=== PATIENT | male | born 1965 | race Caucasian/White ===

== ENCOUNTER → 2020-02-27 | Outpatient (CLI) | payer OTHER, SELFPAY ==
--- NOTE | 2020-02-26 | IMM_PTH ---
PATIENT: TRI MARTINEZ LOC: [facility] U#:[id number] AGE/SX: 54/M ROOM: RE02/27/[address]: Dr. Quinn Du DO : 1965 BED: DIS: 02/27/2020 SPEC #: [id number] RECD: 02/28/20 10:23 STATUS: ANDREY RETee #: [id number] ISIDORO: 02/26/20 00:[address]: Quinn Du DEPT: IMMUNOHISTOCHEMISTRY RECD BY: Shirley Peterson Tissues: Skin of forearm, NOS Procedures: [place]-1 (initial) S-100 (add) PHYSICIAN & INSTITUTION [place] [id number] SPECIMEN INFORMATION: Tissue Source: Left forearm Clinical Info: Left forearm mole Specimen Number: [id number] CPT code: 20726, 43800 METHODOLOGY: Deparaffinized sections of prefer/formalin-fixed tissue or PAP/DQ stained slides are incubated with monoclonal/polyclonal antibodies/oligonucleotide probes. Localization is made via biotin free immunoperoxidase method. Appropriate controls are performed and reacted as expected. Results on target cell population are indicated in the following table: RESULTS: ANTIBODY / CLONE RESULT S-100 (4C4.9) positive MART-1 (A-103) positive These tests were developed and their performance characteristics determined by [facility]. They may not have been cleared or approved by the U.S. Food and Drug Administration. The FDA has determined that such clearance or approval is not necessary. The above immunohistochemical/dualISH markers are ordered and reviewed by the Pathologist. INTERPRETATION: Left forearm, shave biopsy: Mild melanocytic hyperplasia, favor reactive. Chronic inflammation. This case has been reviewed in consultation with Dr. Boyd who concurs with the above diagnosis. SJ:linda 03/02/20
[2020-02-26 16:03] VITALS: BMI 32.3
--- NOTE | 2020-02-26 16:45 | LES_PTH ---
PATIENT: TRI MARTINEZ LOC: [facility] U#:[id number] AGE/SX: 54/M ROOM: RE02/27/[address]: Dr. Quinn Du DO : 1965 BED: DIS: 02/27/2020 SPEC #: [id number] RECD: 02/27/20 09:05 STATUS: ANDREY MARVIN #: [id number] ISIDORO: 02/26/20 16:[address]: Quinn Du DEPT: SURGICAL PATHOLOGY RECD BY: Ward Ortiz Tissues: Skin of forearm, NOS Procedures: Surgery Specimen Level IV HEADER OPERATION: Shave biopsy PRE-OP DIAGNOSIS: Left forearm mole TISSUE SUBMITTED: Left forearm MICROSCOPIC DIAGNOSIS Left forearm mole, shave biopsy: Junctional and moderate to marked dermal lichenoid chronic inflammation. Acanthosis, hyperkeratosis and mild melanocytic hyperplasia, favor reactive. Solar elastosis. Dermal melanophages. Special stain for fungi is negative for organisms; matched control is appropriate. Negative for malignancy. See comment. ABBY:linda 02/28/20 COMMENT Immunohistochemistry ([id number]) supports the above diagnosis. Clinical correlation and appropriate follow up are necessary. Case has been reviewed in consultation with Dr. Boyd who concurs with the above diagnosis. IDC:AM MICROSCOPIC DESCRIPTION Slides are reviewed. GROSS DESCRIPTION Received in fixative is one container labeled with the patient's name and designated left forearm. The specimen consists of a shave biopsy of carrington-light brown skin measuring 1 x 0.6 x 0.1 cm. The specimen is inked and submitted entirely in one cassette. It will be sectioned at the time of embedding. / ABBY:linda 02/27/20 TC:3 CPT: 62219, 59087
== END | disposition home or self-care (01) ==
LOC: LABSPEC 08:53
PROVIDERS: PCP Family Medicine; Referring Provider Family Medicine; Visit Provider Family Medicine
DX: C44.619 Basal cell carcinoma of skin of left upper limb, including shoulder (principal)
CPT/HCPCS: 88305; 88341; 88342

== ENCOUNTER → 2021-05-11 | Outpatient (CLI) | payer OTHER, SELFPAY ==
[2021-05-11 09:33] VITALS: BMI 32.3
== END | disposition home or self-care (01) ==
LOC: LABSPEC 16:18
PROVIDERS: PCP Family Medicine; Referring Provider Family Medicine; Visit Provider Family Medicine
DX: Z20.822 Contact with and (suspected) exposure to COVID-19 (principal)
CPT/HCPCS: 87635; U0005; U0003

== ENCOUNTER 2022-01-07 09:29 | Outpatient (CLI) | payer OTHER, SELFPAY ==
--- NOTE | 2022-01-07 09:30 | RAD_ITS ---
STUDY: X-RAY CHEST REASON FOR EXAM: Male, 56 years old. Cough TECHNIQUE: PA and lateral views of the chest. COMPARISON: None. FINDINGS: Patchy infiltrate in the right lower lobe preferentially in the peripheral distribution. This may represent pneumonitis associated with Covid. Mild increased markings at the left lung base. There is no demonstrated pleural abnormality. Normal size heart. Normal mediastinum and malcolm. Normal visualized pulmonary arteries. There is atherosclerotic tortuosity of the aortic arch and descending thoracic aorta. There are diffuse degenerative changes of the visualized thoracic spine. Normal visualized ribs, clavicles, and shoulders. There is no demonstrated abnormality of the visualized soft tissue structures of the upper abdomen. RAD/Chest PA and Lateral IMPRESSION: Patchy infiltrates in the peripheral aspect of the right lower lobe. Pneumonitis associated with Covid should be ruled out. Electronically Signed: Lance Vinson MD at 9:51 EST ,
== END 2022-01-07 23:59 | disposition home or self-care (01) ==
LOC: MTRAD 09:30
PROVIDERS: PCP Family Medicine; Visit Provider Physician Assistant
DX: R05.9 Cough, unspecified (principal)
CPT/HCPCS: 71046

== ENCOUNTER 2023-02-03 20:33 | Emergency (ER) | payer OTHER, SELFPAY ==
[2023-02-03 20:34] VITALS: BP 201/102; PULSE 84; RESP 18; TEMP 35.7; O2SAT 97
[2023-02-03] MEDS: HYDROmorphone 1 MG/ML Syringe 2 MG IM (21:08)
[2023-02-03 21:12] VITALS: BMI 48.4
--- NOTE | 2023-02-03 21:26 | RAD_ITS ---
EXAM: XR LEFT KNEE COMPLETE, 4 OR MORE VIEWS CLINICAL INDICATION: injury TECHNIQUE: Four or more views of the left knee. This report was created using [employer] report generation technology. COMPARISON: None. FINDINGS: BONES/JOINTS: Unremarkable. No acute fracture. No subluxation. Normal alignment. Preservation of the joint space. No sclerotic or destructive changes observed. SOFT TISSUES: Unremarkable. No soft tissue swelling or gas. No radiopaque foreign body. RAD/Knee 4 or More Views IMPRESSION: Negative left knee x-rays. Electronically Signed: Gonzalo Combs MD at 21:47 EDT ,
[2023-02-03] MEDS: Ondansetron ODT 4 MG Tablet PO (22:28)
--- NOTE | 2023-02-03 22:31 | US_ITS ---
EXAM: US DUPLEX LEFT LOWER EXTREMITY VEINS CLINICAL INDICATION: PT WAS WALKING AND LT KNEE GAVE OUT- CAN''T BEAR WEIGHT ON IT. IN SEVERE PAIN- HAPPENED JUST TONIGHT TECHNIQUE: Real-time duplex ultrasound scan of the left lower extremity veins integrating B-mode two-dimensional vascular structure, Doppler spectral analysis, color flow Doppler imaging and compression. This report was created using [employer] report generation technology. COMPARISON: None. FINDINGS: DEEP VEINS: Unremarkable. No DVT in the visualized common femoral, femoral, proximal deep femoral or popliteal veins. The veins demonstrate normal color flow, are normally compressible, with normal phasic flow and/or augmentation response. SUPERFICIAL VEINS: Unremarkable. No thrombus in the visualized great saphenous vein. SOFT TISSUES: No acute findings. No popliteal cyst. US/Venous Duplex Imag/Limited/Uni IMPRESSION: Normal left lower extremity duplex venous ultrasound. Electronically Signed: Gonzalo Combs MD at 23:18 EDT ,
--- NOTE | 2023-02-03 22:40 | ED.VIS.LOWEX ---
HPI History of Present Illness Chief Complaint: Lower Extremity Injury Informant: patient Onset/Context/Timing Onset: Today Current Severity: Severe Maximum Severity: Severe Narrative Narrative: Patient presents secondary to left knee pain. 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 He was in and out of his truck multiple times today. This evening he stepped out of his truck and had some slight knee pain with his first step. With the second step he feels like his knee gave out on him. He now has severe pain to the left knee and feels like it is going to give out. He was going to wait to go to urgent care tomorrow but due to severity of pain presents to the ER tonight. [facility] Medical History Anxiety COVID-19 Hypertension Numerous moles Home Medications hydrocodone-acetaminophen 5-325mg 5mg-325mg 1 tab PO Q6H PRN PRN Pain 3 days #10 TABLETS 02/03/23 [Rx Last Taken Unknown] ondansetron 4 mg disintegrating tablet 4 mg PO Q8H PRN PRN Nausea #10 tabs 02/03/23 [Rx Last Taken Unknown] Allergy/AdvReac Type Severity Reaction Status Date / Time No Known Allergies Allergy Verified 02/03/23 20:35 Family History Mother Anxiety Grandfather Cancer Surgical History History of vasectomy Social History Smoking Status: Never smoker alcohol intake: never substance use type: does not use what type of physical activity do you participate in: walking frequency: 1-2 times per week ROS ROS ED Constitutional Constitutional ED: Denies chills or fever(s) Eyes Eyes: Denies change in vision ENT ENT ED: Denies rhinorrhea or sore throat Cardiovascular Cardiovascular: Denies chest pain Respiratory/Chest Respiratory/Chest: Denies cough or dyspnea Gastrointestinal Gastrointestinal: Denies abdominal pain, nausea or vomiting Musculoskeletal Musculoskeletal: Reports arthralgias Neurologic Neurologic: Denies headache(s) Psychiatric Psychiatric: Denies anxiety or depression Allergic/Immunologic Allergic/Immunologic ED: Denies mouth swelling or tongue swelling EXAM Physical Exam Const Vital Signs: 02/03/23 20:34 Temperature 96.3 F L Temperature Source Temporal Pulse Rate 84 Respiratory Rate 18 Blood Pressure 201/102 H Blood Pressure Mean 135 Pulse Ox 97 Oxygen Delivery Method Room Air Positive well nourished and well developed General Appearance ED: well developed HEENT Reports normocephalic and head/scalp atraumatic Eyes PERRL and EOMs intact bilaterally Neck supple Chest Wall inspection of chest normal and palpation of chest normal Resp normal respiratory effort and clear to auscultation bilaterally Cardio regular rate and regular rhythm GI normal to inspection, nondistended, normoactive bowel sounds Palpation: soft Extremity Extremity Narrative: 3+ bilateral lower extremity edema. Tenderness to the left knee, mild to the anterior surface and moderate to the posterior surface. Mild medial and lateral knee pain with testing of the medial and lateral ligaments. No tenderness over the patella or patellar tendon. No erythema or sign of infection. Decreased range of motion secondary to pain. Neuro oriented x3 and no sensory deficits noted Sensorium / Orientation: alert Psych mental status grossly normal Skin no rashes or lesions noted MDM MDM MDM Narrative Medical decision making narrative: Patient was given IM Dilaudid for pain control. Left knee x-rays obtained. Radiography Diagnostic Testing: Clinical Impression(s) from Imaging Studies Knee X-Ray 02/03/23 21:26 IMPRESSION: Negative left knee x-rays. Electronically Signed: Gonzalo Combs MD at 21:47 EDT , Venous Duplex 02/03/23 22:31 IMPRESSION: Normal left lower extremity duplex venous ultrasound. Electronically Signed: Gonzalo Combs MD at 23:18 EDT , Treatment and Re-Evaluation Narrative: Left knee x-ray per my interpretation reveals no acute bony findings. Radiology interpretation is reviewed and agrees. On repeat evaluation patient had developed some nausea from the analgesics. He is given Zofran ODT. He is complaining of pain shooting up into the posterior thigh. 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 Venous ultrasound reveals no evidence of DVT. Patient be given crutches and knee immobilizer. He may weight-bear as tolerated. He will be referred to orthopedics for follow-up. Patient was noted be significantly hypertensive on arrival. He has a history of hypertension but is not currently on any medication. When further questioned about this he states he has waxing and waning hypertension, usually brought on by when he is stressed. I advised him that I believe his blood pressure tonight is secondary to his current pain. He will follow-up with his primary care physician for repeat blood pressure checks to ensure it is improving. Discharge Plan Triage Chief Complaint: Lower Extremity Injury ED Provider: Meena Krishnamurthy Dx/Rx/DC Orders Clinical Impression: Left knee sprain, Hypertension Instructions: ED Meniscal Injury Knee Poss, ED Hypertension, To Be Confirmed, ED Knee Sprain Prescriptions: New hydrocodone-acetaminophen 5-325 mg tablet 1 tab PO Q6H PRN PRN (Reason: Pain) 3 Days Qty: 10 0RF ondansetron 4 mg tablet,disintegrating 4 mg PO Q8H PRN PRN (Reason: Nausea) Qty: 10 0RF Primary Care Provider: Quinn Du Referrals: Quinn Du, [Primary Care Provider] - 5-7 Days Chad Jones MD [Med Staff - Active Staff] - 3-5 Days if not improving Disposition Disposition: Home, Self Care
== END 2023-02-04 00:05 | disposition home or self-care (01) ==
PROVIDERS: Emergency Provider Emergency Medicine; PCP Family Medicine; Visit Provider Emergency Medicine
DX: S83.92XA Sprain of unspecified site of left knee, initial encounter (principal); I10 Essential (primary) hypertension; X58.XXXA Exposure to other specified factors, initial encounter
CPT/HCPCS: 73564; 93971; 96372; 99284

== ENCOUNTER → 2024-01-26 | Outpatient (CLI) | payer OTHER, SELFPAY ==
[2024-01-26 10:49] LABS: ALB/GLOB Ratio 0.9 RATIO (0.9-2.4); AST(SGOT) 41 U/L (15-37); Alanine Aminotransfer ALT/SGPT 56 U/L (16-61); Albumin, Serum 3.6 g/dL (3.2-5.0); Alkaline Phosphatase 85 U/L (45-117); Anion Gap 4 (5-15); BUN 16 mg/dL (7-18); BUN/Creat Ratio 17.7 RATIO (10-20); Calcium,Total 9.3 mg/dL (8.5-10.1); Chloride 104 mmol/L (98-107); Cholesterol 156 mg/dL (200); Creatinine, Serum 0.91 mg/dL (0.70-1.30); EST Glomerular Filtration Rate 91 mL/min (>60); Est Glom Filt Rate - Afr Amer 110 mL/min (>60); Glucose 107 mg/dL (74-106); High Density Lipoprotein 40 mg/dL; Potassium 4.9 mmol/L (3.5-5.1); Protein, Total 7.6 g/dL (6.4-8.2); Sodium Level 137 mmol/L (136-145); Triglycerides 112 mg/dL; Very Low Density Lipoprotein 22 mg/dL (5-40)
== END | disposition home or self-care (01) ==
LOC: MTLAB 07:54
PROVIDERS: PCP Family Medicine; Referring Provider Family Medicine; Visit Provider Family Medicine
DX: I10 Essential (primary) hypertension (principal)
CPT/HCPCS: 36415; 80053; 80061

== ENCOUNTER 2024-06-02 17:25 | Inpatient (IN) | payer OTHER, SELFPAY ==
[2024-06-02] VITALS (7 sets, daily range): BP systolic 106–148; BP diastolic 69–87; PULSE 93–106; RESP 15–22; TEMP 36.7–39.6; O2SAT 95–97; BMI 46.3; BMI 46.4
--- NOTE | 2024-06-02 17:52 | EKG12_ITS ---
Test Reason : SOB Blood Pressure : / mmHG Vent. Rate : 108 BPM Atrial Rate : 108 BPM P-R Int : 198 ms QRS Dur : 138 ms QT Int : 362 ms P-R-T Axes : 066 -22 106 degrees QTc Int : 485 ms Sinus tachycardia Left bundle branch block Abnormal ECG Confirmed by MITCH KULKARNI, ZACHARY ([id number]), videotape editor LAWRENCE CHAN ([id number]) on 06/05/2024 9:48:45 AM Referred By: Confirmed By:GAYATHRI MEYER MD
--- NOTE | 2024-06-02 17:57 | EDS_ITS ---
<Statement entered by Meena Krishnamurthy MD - 06/02/24 23:58> I have personally performed a face to face assessment of the patient and have reviewed the GABBIE Note. Patient presents secondary to body aches, fever, weakness, nausea. Patient states he did not feel well last evening but did get up this morning and go to [employer]. After returning home he felt feverish with chills, nausea, and vomiting. He does report a recent injury to his left lower leg with a skin tear. He has noted watery drainage from the area. He has also had a cough. Patient sitting upright in bed no acute distress. Head and neck examination unremarkable. Heart is slightly tachycardic at the time of my exam. Lung sounds are diminished at the bilateral bases. Abdomen soft, obese, nontender. Lower extremity examination reveals chronic lymphedema. There is a superficial skin tear/blister that has opened to the left lower leg. There is serosanguineous drainage. There is minimal surrounding erythema. Patient is given Tylenol for fever. IV fluids were initiated. Blood cultures obtained. CBC was a white count of 14.9 with 90% neutrophils. Hemoglobin is normal at 14.0. Chemistry studies and LFTs are largely unremarkable. Lactic acid is elevated at 2.4. Swab for COVID, influenza, and RSV is negative. Portable chest x-ray per my interpretation feels no obvious infiltrate. Radiology interpretation reviewed and agrees. Patient has received IV fluids for his elevated lactic acid level. Patient given Zosyn and vancomycin. I suspect patient may have mild left lower extremity cellulitis, but I do feel the majority of his fever and symptoms are coming from a viral syndrome. Given his constellation of symptoms we will discuss with hospitalist regarding admission. HPI History of Present Illness Chief Complaint: Nausea/Vomiting Narrative Narrative: Patient is a 58-year-old male with history of obesity, lymphedema, anxiety who presents to the emergency department for feeling unwell with fever, weakness, nausea and vomiting. Patient states he did not feel 100% last evening however he woke up today, he went to [employer]. After [employer], he developed a what he believes to be a fever because he was shaking, felt increasingly weak, had a couple episodes of nausea and vomiting. Patient has been draining from his left leg secondary to a scrape a couple days ago. His noticed that he was more weak, dizzy and is here for evaluation. Denies any chest pain, patient does have a cough does not feel short of breath. [facility] Medical History (Updated 06/02/24 @ 19:36 by MOISES Nguyen) Internal derangement of right knee COVID-19 Basal cell carcinoma Erectile dysfunction Actinic keratosis Numerous moles Anxiety Hypertension Home Medications ?Medication ?Instructions ?Recorded ?Last Taken ?Type tadalafil 20 mg tablet (Cialis) 20 mg PO QDAY PRN sexual activity 01/24/24 Unknown Rx #10 tabs cyclobenzaprine 10 mg tablet 10 mg PO TID PRN muscle spasm #14 01/29/24 Unknown Rx tabs Allergy/AdvReac Type Severity Reaction Status Date / Time No Known Allergies Allergy Verified 06/02/24 17:27 Family History Mother Anxiety Grandfather Cancer Surgical History History of vasectomy Social History (Updated 06/02/24 @ 19:[address] Claudia Hunter MD) household members: spouse Smoking Status: Never smoker alcohol intake: never substance use type: does not use what type of physical activity do you participate in: walking frequency: 1-2 times per week ROS ROS ED ROS Narrative Constitutional: Negative for weight loss. Positive for fever, chills, weakness Eyes: Negative for vision loss, vision change, double vision ENT: Negative for any sore throat, ear pain, congestion Cardiovascular: Negative for any chest pain, tightness, palpitations Respiratory: Negative for any sputum production, hemoptysis, dyspnea, dyspnea on exertion, orthopnea. Positive for cough Gastrointestinal: Negative for any abdominal pain, diarrhea, constipation, blood in stool, blood in vomit. Positive for nausea and vomiting : Negative for any urinary frequency, dysuria, retention, blood in urine Muscle skeletal: Negative for any neck pain, back pain. Positive generalized myalgias Neurological: Negative for any headache, syncope. Positive for myalgias Skin: Negative for any rashes, itching, abrasions, lacerations Psychiatric: Negative for any depression, anxiety, stress, suicidal ideation, homicidal ideation Hematologic: Negative for any excessive bruising, easy bleeding EXAM Physical Exam Narrative Exam Narrative: Vital signs reviewed. Patient is alert and orient x 4, patient is flushed, oral temperature that I took was 103.2. HEET: Head normocephalic atraumatic, TMs clear bilaterally. Posterior pharynx is clear, dry mucous membranes. Nares clear bilaterally. Neck: Supple with no lymphadenopathy or tenderness. No signs of meningismus. Cardiac: Regular rate and rhythm no murmurs gallops or rubs, equal peripheral pulses bilaterally. Respiratory: Lungs clear to auscultation bilaterally. No chest tenderness. Patient did exhibit a dry cough during my examination Abdomen: Soft, nontender, nondistended. No abdominal bruit or pulsatile masses. No hepatosplenomegaly Extremities: Patient has significant lymphedema to bilateral lower extremities. Patient's right leg is edematous, left leg is similar however much more red in color, more erythema, more warmth. Patient also has some clear fluid coming from a scrape to the outer leg. I am concerned for some cellulitis.. Active full range of motion of all extremities. Neuro: Cranial nerves II through XII intact, no focal neurological deficits. Skin: Clean dry and intact with no rash, purpura, petechiae, vesicles or pustules. Skin is warm to the touch. Backs/flank: No CVA tenderness, no midline spinal tenderness, no deformity. Psych: Normal mood and affect. No SI, HI or acute psychosis. Const Vital Signs: 06/02/24 17:27 06/02/24 17:47 06/02/24 18:08 Temperature 100.5 F H 103.2 F H Temperature Source Temporal Oral Pulse Rate 104 H Respiratory Rate 22 H Blood Pressure 106/87 H Blood Pressure Mean 93 Pulse Ox 95 Oxygen Delivery Method Room Air Room Air 06/02/24 18:50 Temperature 100.7 F H Temperature Source Oral Pulse Rate 106 H Respiratory Rate 17 Blood Pressure 148/74 H Blood Pressure Mean 98 Pulse Ox 95 Oxygen Delivery Method Room Air MDM MDM Lab Data Labs: Laboratory Results - last 24 hr 06/02/24 18:03 WBC 14.9 H RBC 5.20 Hgb 14.7 Hct 43.9 MCV 84.4 MCH 28.3 MCHC 33.5 RDW Std Deviation 38.3 RDW Coeff of Rebecca 12.6 Plt Count 234 MPV 9.5 Immature Gran % (Auto) 0.500 Neut % (Auto) 90.4 H Lymph % (Auto) 4.1 L [place] % (Auto) 4.5 Eos % (Auto) 0.2 Baso % (Auto) 0.3 Absolute Neuts (auto) 13.4 H Absolute Lymphs (auto) 0.61 L Nucleated RBC % 0 PT 14.9 INR 1.2 APTT 30.9 Sodium 133 L Potassium 3.5 Chloride 103 Carbon Dioxide 23.0 Anion Gap 7 BUN 21 H Creatinine 1.11 Estim Creat Clear Calc 103.86 Est GFR (MDRD) Af Amer 87 Est GFR (MDRD) Non-Af 72 BUN/Creatinine Ratio 18.9 Glucose 108 H Lactic Acid 2.4 H* Calcium 9.2 Total Bilirubin 0.90 AST 33 ALT 51 Alkaline Phosphatase 86 Total Protein 7.3 Albumin 3.8 Globulin 3.5 Albumin/Globulin Ratio 1.1 Radiography Diagnostic Testing: Clinical Impression(s) from Imaging Studies Chest X-Ray 06/02/24 18:25 IMPRESSION: 1. Minimal RIGHT basilar atelectasis. 2. No evidence of congestive failure, airspace consolidation or effusion. Electronically Signed: aDle García MD at 19:07 EDT , EKG Sinus tachycardia: Attestation: I personally reviewed and interpreted this EKG as follows: Interpretation: Sinus Rhythm Comments: Sinus tachycardia, left bundle branch block, rate 108 bpm, NM 198 ms, QRS duration 130 ms, no acute ST elevation, no acute infarct noted.=-0 Treatment and Re-Evaluation :: Differential diagnosis includes however is not limited to: Sepsis, cellulitis, viral illness, COVID-19/influenza/RSV, community-acquired pneumonia, UTI Patient does appear to not feel well, patient's tachycardia, fever 103.2 on my examination, 106/87 blood pressure. Patient will receive a full septic workup including 2 sets of blood cultures patient received 2 L of normal saline. Oral Tylenol will be given, once patient's blood work is back and will be able to give Toradol. Chest x-ray will be obtained as well as urinalysis. COVID- 19/influenza/RSV swab will be given. All radiologic examinations were read, reviewed by the emergency department attending. From these reads, a plan of care will be put in place. Patient CBC shows a leukocytosis with a white blood count of 14.9, patient's PT/INR within normal limits, patient's chemistries show sodium of 133, glucose 108, lactic acid was elevated 2. 4. Remainder the blood work was unremarkable. Chest x-ray was unremarkable. Patient's COVID-19/influenza/RSV was negative. On reevaluation, the patient was feeling better, he states that his body aches have decreased however he still having some back pain and right hand pain which is chronic. Patient does meet some sepsis criteria, patient received 2 L of normal saline for ideal body weight. IV Zosyn, vancomycin will be ordered. This is after 2 sets of blood cultures. Patient will need to be admitted to the hospital. I will speak to the hospitalist. I do believe that the patient's main source of infection is the left lower extremity, it is more red, swollen. Low suspicion for any DVT. There is some drainage from the lateral aspect. Spoke with hospitalist, patient be admitted full for MedSurg. Discharge Plan Triage Chief Complaint: Nausea/Vomiting ED Midlevel Provider: Dale Branch ED Provider: Meena Krishnamurthy Dx/Rx/DC Orders Clinical Impression: Fever, Cellulitis of left leg, Lactic acidosis, Cough Prescriptions: No Action tadalafil [Cialis] 20 mg tablet 20 mg PO QDAY PRN (Reason: sexual activity) Qty: 10 3RF Rx Instructions: administer approximately 30min before sexual activity; do not use more than 1 dose per 24hrs cyclobenzaprine 10 mg tablet 10 mg PO TID PRN (Reason: muscle spasm) Qty: 14 0RF Primary Care Provider: Quinn Du Referrals: Quinn Du DO [Primary Care Provider] - Print Language: Nauruan Disposition Disposition: Acute Care Hospital [facility]
[2024-06-02] MEDS: Acetaminophen 500 MG Tablet 1000 MG PO (18:06)
[2024-06-02] MEDS: 0.9% Normal Saline (1000mL) 1,000 ML 999 ML IV ×2 (18:06→19:42)
[2024-06-02 18:20] LABS: Absolute Lymphocyte Count 0.61 X10^3/uL (0.83-4.51); Absolute Neutrophil Count 13.4 X10^3/uL (2.0-7.7); Basophil# 0.05 X10^3/uL; Basophil% 0.3 % (0-1); Eosinophil# 0.03 X10^3/uL; Eosinophils% 0.2 % (0-5); Hematocrit 43.9 % (40-54); Hemoglobin 14.7 g/dL (13.0-16.5); Lymphocyte # 0.61 X10^3/ul (0.83-4.51); Lymphocyte % 4.1 % (19-41); Mean Corp Hgb Conc 33.5 g/dL (32-36); Mean Corpuscular Hgb 28.3 pg (27.0-32.0); Mean Corpuscular Volume 84.4 fL (80-94); Mean Platelet Vol. 9.5 fl (6.2-12.0); Monocyte# 0.67 X10^3/uL; Monocyte% 4.5 % (0-10); NRBC Flagged by Analyzer 0 % (0-5); Neutrophil # 13.42 X10^3/uL (2.7-7.7); Neutrophil % 90.4 % (47-70); Platelet Count 234 K/mm3 (150-450); RBC Distribution Width CV 12.6 % (11.6-14.6); RBC Distribution Width SD 38.3 fl (35.1-43.9); White Blood Count 14.9 K/mm3 (4.4-11.0)
[2024-06-02 18:24] LABS: International Normalized Ratio 1.2; Prothrombin Time (Protime)PT. 14.9 SECONDS (11.7-14.9)
[2024-06-02 18:25] LABS: Partial Thromboplast Time 30.9 Seconds (24.1-36.2)
--- NOTE | 2024-06-02 18:25 | RAD_ITS ---
INDICATION: cough EXAMINATION/TECHNIQUE: X-RAY - XR Chest 1 View COMPARISON: 01/07/2022 FINDINGS: LIFE-SUPPORT AND LINES: 1. None HEART AND VESSELS: The cardiac silhouette, pulmonary vasculature have normal appearance. No evidence of congestive failure. LUNGS AND PLEURAL SPACES: Mild volume loss at the RIGHT lung base, minimal RIGHT basilar atelectasis. No consolidation, remaining lung zones clear. No pulmonary mass is noted. MEDIASTINUM AND HILAR REGIONS: No masses adenopathy noted. No areas of calcification. Visualized upper airway is normal in position. BONY ELEMENTS: No acute bony changes noted. RAD/Chest 1 View (Portable) IMPRESSION: 1. Minimal RIGHT basilar atelectasis. 2. No evidence of congestive failure, airspace consolidation or effusion. Electronically Signed: Dale García MD at 19:07 EDT ,
[2024-06-02] MEDS: Ketorolac 15 MG/ML Vial IV (18:28)
[2024-06-02 18:32] LABS: ALB/GLOB Ratio 1.1 RATIO (0.9-2.4); AST(SGOT) 33 U/L (15-37); Alanine Aminotransfer ALT/SGPT 51 U/L (16-61); Albumin, Serum 3.8 g/dL (3.2-5.0); Alkaline Phosphatase 86 U/L (45-117); Anion Gap 7 (5-15); BUN 21 mg/dL (7-18); BUN/Creat Ratio 18.9 RATIO (10-20); Calcium,Total 9.2 mg/dL (8.5-10.1); Chloride 103 mmol/L (98-107); Creatinine, Serum 1.11 mg/dL (0.70-1.30); EST Glomerular Filtration Rate 72 mL/min (>60); Est Glom Filt Rate - Afr Amer 87 mL/min (>60); Estimated Creatinine Clearance 103.86 ml/min; Globulin 3.5 g/dL (2.2-4.2); Glucose 108 mg/dL (74-106); Potassium 3.5 mmol/L (3.5-5.1); Protein, Total 7.3 g/dL (6.4-8.2); Sodium Level 133 mmol/L (136-145)
[2024-06-02 19:02] LABS: Lactic Acid 2.4 mmol/L (0.4-1.9)
--- NOTE | 2024-06-02 19:33 | HP.PCM.HOS_ITS ---
HPI - General General Date of Admission: 06/02/24 Date of Service: 06/02/24 Chief Complaint: LLE redness, drainage, increased edema. HPI Narrative The patient is a 58 y/o M w/ PMHx: Morbid obesity, Chronic Lymphedema BL LE, HTN, Anxiety and Depression, CKD stage I versus stage II unclear exact who presents to the [facility] ED on 06/02/24 with history of fatigue, malaise, fever, weakness, nausea and emesis initially starting to feel off the evening prior but awoke today and went to religious after which he had onset of chills and fever with then noted GI symptoms including nausea and handful bouts of emesis, poor appetite, generalized headache with left lower extremity recent scrape which occurred several weeks prior with onset of potentially increased drainage with recent mild additional nonproductive cough, chronic but worse on day of presentation prompting ED evaluation. Patient's is present and denies any illness herself recently. Workup in the ED included T1 100.5, heart rate 104, BP 106/87, respiratory rate 22, 95% on room air with most recent repeat vitals T1 100.7, heart rate 106, BP 148/74, respiratory rate 17, 95% on room air with Tmax while in the ED 103.2, CBC with WBC 14.9, hemoglobin 14.7, platelet 234 with left shift and lymphopenia, unremarkable coags, CMP with sodium 133, BUN/creatinine 21/1.11, GFR 72, glucose 108, lactic acid mildly elevated 2.4, unremarkable hepatic profile, blood culture x 2 pending per ED, rapid SARS COVID/influenza/RSV PCR negative, chest x-ray with minimal right basilar atelectasis with no acute cardiopulmonary findings, EKG with sinus tachycardia with left bundle branch block with no acute evidence of ischemia. In the ED patient ministered 2 L normal saline, Tylenol 1000 mg p.o. x 1, Toradol 50 mg IV x 1, Zofran 4 mg IV x 1, morphine 4 mg IV x 1, IV Zosyn and IV vancomycin. [facility]LY [facility] Medical History Lymphedema Internal derangement of right knee COVID-19 Basal cell carcinoma Erectile dysfunction Actinic keratosis Numerous moles Anxiety Hypertension Home Medications ?Medication ?Instructions ?Recorded ?Last Taken ?Type tadalafil 20 mg tablet (Cialis) 20 mg PO QDAY PRN sexual activity 01/24/24 Unknown Rx #10 tabs Allergy/AdvReac Type Severity Reaction Status Date / Time No Known Allergies Allergy Verified 06/02/24 17:27 Family History Mother Anxiety Grandfather Cancer Father No problems noted. Surgical History History of vasectomy Social History household members: spouse Smoking Status: Never smoker alcohol intake: never substance use type: does not use what type of physical activity do you participate in: walking frequency: 1-2 times per week ROS ROS Narrative Admission Review of Systems: CONSTITUTIONAL: No weight loss, + fever, chills, weakness or fatigue. HEENT: + Headache. Eyes: No visual loss, blurred vision, double vision or yellow sclerae. Ears, Nose, Throat: No hearing loss, sneezing, congestion, runny nose or sore throat. SKIN: + Chronic bilateral lower extremity venous stasis skin changes, chronic lymphedema, stasis blister with open region left lateral calf anteriorly with serous drainage. CARDIOVASCULAR: No chest pain, chest pressure or chest discomfort, palpitations, edema, orthopnea, syncopal events. RESPIRATORY: + Nonproductive cough, increased above baseline. No shortness of breath, wheezing, hemoptysis. GASTROINTESTINAL: + anorexia, nausea, vomiting. No diarrhea, abdominal pain, melena, BRBPR. GENITOURINARY: No dysuria, frequency, urgency or retention. NEUROLOGICAL: + Headache. Dizziness, syncope, paralysis, ataxia, numbness or tingling in the extremities, focal weakness, change in bowel or bladder control, seizure. MUSCULOSKELETAL: + muscle, back pain, joint pain or stiffness. HEMATOLOGIC: No anemia, bleeding or bruising. LYMPHATICS: No enlarged nodes. No history of splenectomy. PSYCHIATRIC: + History of anxiety and depression. ENDOCRINOLOGIC: + reports of sweating, cold or heat intolerance. No polyuria or polydipsia. ALLERGIES: No history of asthma, hives, eczema or rhinitis. Vital Signs Vital Signs Vital Signs: 06/02/24 17:27 06/02/24 17:47 06/02/24 18:08 Temperature 100.5 F H 103.2 F H Temperature Source Temporal Oral Pulse Rate 104 H Respiratory Rate 22 H Blood Pressure 106/87 H Blood Pressure Mean 93 Pulse Ox 95 Oxygen Delivery Method Room Air Room Air 06/02/24 18:50 Temperature 100.7 F H Temperature Source Oral Pulse Rate 106 H Respiratory Rate 17 Blood Pressure 148/74 H Blood Pressure Mean 98 Pulse Ox 95 Oxygen Delivery Method Room Air Weight Weight: 323 lb 6.69 oz Body Mass Index (BMI) 46.3 Physical Exam Narrative Physical Examination: General: Awake, alert, oriented x 3 and cooperative, seated upright in the ED bed, fatigued, wet cloth on his forehead. Skin: Normal color, normal turgor, no icterus, no cyanosis except for notable bilateral lower extremity venous stasis changes bilaterally, no specific severe appearing erythema of the left lower extremity but does have a stasis blister that opened on the left lateral medial calf region anteriorly with only serous drainage noted, nonfoul-smelling no marked periwound erythema. HEENT: AT/NC, EOMI, PERRLA, dry MM, no carotid bruits or JVD noted; however, very thickened neck makes evaluation difficult. Lungs: Diminished, greater bases, appropriate effort, no evidence of any distress, no rales, ronchi or wheezing. Heart: Mildly tachycardic with regular rhythm; no gallop, rub audible. Abdomen: Soft, morbidly obese, NTTP distant bowel sounds, difficult to discern distention and HSM given habitus. Extremities: No cyanosis, no clubbing, significant bilateral lower extremity lymphedema, see skin. ing, or edema. Neurological: Patient awake, alert, oriented as noted, cognitive function intact; pupils equally reactive to light and accommodation, cranial nerves grossly normal, moving all 4 extremities, no focal deficits, strength moderately to severely global decreased secondary to acute presentation. Psychiatric: Affect appears flat, fatigued, ill-appearing, no acute evidence of depressive or anxiety feelings but does have underlying history. Results Lab / Micro Data 06/02/24 18:03 06/02/24 18:03 Labs: Laboratory Results - last 24 hr 06/02/24 18:03: WBC 14.9 H, RBC 5.20, Hgb 14.7, Hct 43.9, MCV 84.4, MCH 28.3, MCHC 33.5, RDW Std Deviation 38.3, RDW Coeff of Rebecca 12.6, Plt Count 234, MPV 9.5, Immature Gran % (Auto) 0.500, Neut % (Auto) 90.4 H, Lymph % (Auto) 4.1 L, [place] % (Auto) 4.5, Eos % (Auto) 0.2, Baso % (Auto) 0.3, Absolute Neuts (auto) 13.4 H, Absolute Lymphs (auto) 0.61 L, Nucleated RBC % 0, PT 14.9, INR 1.2, APTT 30.9, Sodium 133 L, Potassium 3.5, Chloride 103, Carbon Dioxide 23.0, Anion Gap 7, BUN 21 H, Creatinine 1.11, Estim Creat Clear Calc 103.86, Est GFR (MDRD) Af Amer 87, Est GFR (MDRD) Non-Af 72, BUN/Creatinine Ratio 18.9, Glucose 108 H, L actic Acid 2.4 H*, Calcium 9.2, Total Bilirubin 0.90, AST 33, ALT 51, Alkaline Phosphatase 86, Total Protein 7.3, Albumin 3.8, Globulin 3.5, Albumin/Globulin Ratio 1.1 Micro: Microbiology 06/02/24 18:15 Mucosa - Nose SARS-CoV-2, Influenza & RSV (PCR) - Final Imaging Radiology Impression Chest X-Ray 06/02/24 18:25 IMPRESSION: 1. Minimal RIGHT basilar atelectasis. 2. No evidence of congestive failure, airspace consolidation or effusion. Electronically Signed: Dale García MD at 19:07 EDT , Assessment & Plan Assessment/Plan (1) Cellulitis of left leg: PLAN: Plan The patient is a 58 y/o M w/ PMHx: Morbid obesity, Chronic Lymphedema BL LE, HTN, Anxiety and Depression, CKD stage I versus stage II unclear exact who presents to the [facility] ED on 06/02/24 with history of fatigue, malaise, fever, weakness, nausea and emesis initially starting to feel off the evening prior but awoke today and went to religious after which he had onset of chills and fever with then noted GI symptoms with left lower extremity recent scrape which occurred a couple days prior with onset of drainage with no recent URI type symptoms of note but given this presentation prompted ED evaluation. #1. LLE Recent Scrape w/ Concern for Possible Acute Cellulitis with associated lactic acidosis and increased edema above chronic lower extremity lymphedema baseline, lower suspicion, suspect #2 as more likely etiology but uncertain: Will admit to [facility] given stable vital signs, maintain on IV vancomycin and Zosyn given systemic signs of infection to be cautious (fever, tachycardia and elevated white count) per cellulitis order set, will obtain Wound Cx, will obtain Wound MRSA PCR, plan repeat CBC in AM, continue affected extremity elevation above heart when seated and in bed, monitor erythema outline with VS checks, will place neck Mika wraps with elevation. Given lactic acidosis and infectious presentation at this time with concern more so for alternate etiology for presentation, preference to judiciously hydrate but given his significant lymphedema at some point may need to consider pulsed dose diuresis to assist in the lower extremity. #2. Increased cough above baseline, nonproductive, fever, chills in the setting of also #1, still uncertain if may be overlapping acute viral syndrome or early pneumonia presentation: CXR in the ED w/ only minimal right base atelectasis with no acute cardiopulmonary findings. Will encourage HOB, IS parameters w/ pending sputum cultures, full respiratory viral panel and urine antigens to be cautious. Plan to judiciously hydrate as noted with repeat chest x-ray in a.m. to be cautious. Bld cx x 2 obtained in the ED. #3. Chronic Kidney Disease Stage I-II based on prior GFR trending, unclear exactly which stage as has vacillated and unsure if lab points were during acute phase is: Admission BUN/Cr 21/1.11, GFR 72, baseline renal function prior noted to be 0.9-1.1, GFR most recently prior to this 01/26/24 GFR 91 but 02/23/15 GFR at that time similarly 75, repeat BMP in AM to further elucidate. #4. Hypertension: BP in the ED elevated above goal, per current list does not appear to be on regimen but clarifying, will add once appropriate, as needed IV hydralazine in the interim. #5. Anxiety and depression: Noted remotely with previous usage of intensive outpatient program as well as escitalopram, lorazepam and at some point Abilify from previous ER records, does not appear currently to be on any regimen, encourage continued close follow-up ongoing with PCP. #6. Bilateral lower extremity chronic lymphedema: Will place neck Mika wraps, elevation, complicates #1. #7. Morbid Obesity: Weight loss and lifestyle changes encouraged. #8. DVT prophylaxis: Lovenox. #9. CODE status: Patient does not have healthcare power of customer sales advisor or living will in place but notes his who is present would be his decision-maker if necessary. Discussed CODE status at length including difference between FULL code, DNR-CCA and DNR-CC status. Following discussions about the differences in these status, requested Full Code status. Advanced Care Planning Face to Face Time:16 minutes. Charges/Coding Visit Charges Inpatient E&M: 45407 Init Hosp L3 Procedures Hospitalists Procedures: 90582 Advncd Care Plan 30 Min
[2024-06-02 19:39] LABS: Bacteria 0 SEEN /hpf (None Seen); Mucous, Urine 0 SEEN /hpf (<or=2+); Red Blood Cells-Urine 0 SEEN /hpf (0-5); Squamous Epithelial Cells - UA 0 SEEN /hpf (0-5); White Blood Cells 0 SEEN /hpf (0-5)
[2024-06-02] MEDS: Vancomycin HCl 2,000 MG in 0.9% Normal Saline (500mL Bag) 500 ML 250 MG IV (19:46)
[2024-06-02] MEDS: Ondansetron 4 MG/2 ML Vial IV (19:47)
[2024-06-02] MEDS: Morphine 4 MG/ML Syringe IV (19:47)
[2024-06-02 19:49] LABS: Color, Urine Yellow (Yellow); Glucose, Dipstick Normal (Normal); Ketone-Dipstick Negative (Negative); Leukocyte Esterase-Dipstick Negative /ul (Negative); Nitrite-Dipstick Negative (Negative); Occult Blood-Urine 10 /ul (Negative); Protein-Dipstick 15 mg/dl (Negative); Urine Bilirubin Dipstick Negative (Negative); Urine Clarity Clear (Clear); Urine Urobilinogen 8 mg/dl (Normal)
--- NOTE | 2024-06-02 21:15 | PCM.RX.CS ---
Consult Antibiotic Management Pharmacy has been consulted to manage selected antibiotic: Vancomycin Type of Intervention Type of Consult: New start Labs Labs: Sodium 133 mmol/L (136-145) L 06/02/24 18:03 Potassium 3.5 mmol/L (3.5-5.1) 06/02/24 18:03 Chloride 103 mmol/L (98-107) 06/02/24 18:03 Carbon Dioxide 23.0 mmol/L (21.0-32.0) 06/02/24 18:03 Anion Gap 7 (5-15) 06/02/24 18:03 BUN 21 mg/dL (7-18) H 06/02/24 18:03 Creatinine 1.11 mg/dL (0.70-1.30) 06/02/24 18:03 Est GFR (MDRD) Af Amer 87 mL/min (>60) 06/02/24 18:03 Est GFR (MDRD) Non-Af 72 mL/min (>60) 06/02/24 18:03 BUN/Creatinine Ratio 18.9 RATIO (10-20) 06/02/24 18:03 Glucose 108 mg/dL (74-106) H 06/02/24 18:03 Microbiology Microbiology: Microbiology 06/02/24 18:15 Mucosa - Nose SARS-CoV-2, Influenza & RSV (PCR) - Final Dosing Weight Weight used for dosin.7 kg Estimated Creatinine Clearance Estimated Creatinine Clearance: 146.7 Goal Trough Goal Trough: 15-20 mcg/mL Pharmacy Plan for Drug Dosing Pharmacy Plan for Drug Dosing: Pharmacy Service will continue to monitor and adjust dosing as required. 2000MG IN ER, 1500 Q8H TROUGH PRIOR TO 4TH DOSE Follow-Up Labs Follow-Up Labs: Trough: Vancomycin Date/Time Labs Ordered Labs to be done on [date and time ordered]: 06/03@1930
[2024-06-02] MEDS: Enoxaparin 40 MG/0.4 ML Syringe SC (21:57)
[2024-06-02 22:09] LABS: Reflex Lactate? Y
[2024-06-02] MEDS: 0.9% Normal Saline (1000mL) 1,000 ML 100 ML IV (22:41)
[2024-06-02] MEDS: Piperacil/Tazobactam 3.375 GM in 0.9% Normal Saline (50mL MB+) 50 ML IV (22:41)
[2024-06-02 23:16] LABS: Lactic Acid 1.5 mmol/L (0.4-1.9)
[2024-06-02] MEDS: Acetaminophen 325 MG Tablet 650 MG PO (23:39)
[2024-06-03] MEDS: Ketorolac 15 MG/ML Vial IV ×4 (02:16→20:54)
[2024-06-03 02:18] VITALS: BP 138/82; PULSE 81; RESP 20; TEMP 37; O2SAT 97
[2024-06-03] MEDS: Vancomycin HCl 1,500 MG in 0.9% Normal Saline (500mL Bag) 500 ML 250 MG IV ×2 (04:39→13:12)
[2024-06-03] MEDS: Acetaminophen 325 MG Tablet 650 MG PO ×2 (04:45→16:42)
[2024-06-03 05:51] VITALS: BMI 46.3
--- NOTE | 2024-06-03 06:00 | RAD_ITS ---
STUDY: X-RAY CHEST REASON FOR EXAM: Male, 58 years old. Cough, fever TECHNIQUE: Single AP portable view of the chest. COMPARISON: 06/02/2024 FINDINGS: The lungs are clear and expanded. There is no demonstrated pleural abnormality. Normal size heart. Normal mediastinum and malcolm. Normal visualized pulmonary arteries. Normal visualized aortic arch and descending thoracic aorta. Normal visualized thoracic spine. Normal visualized ribs, clavicles, and shoulders. There is no demonstrated abnormality of the visualized soft tissue structures of the upper abdomen. RAD/Chest 1 View (Portable) IMPRESSION: Normal x-ray examination of the chest. Electronically Signed: Dale Yoder MD at 8:03 EDT ,
[2024-06-03 06:51] LABS: Absolute Lymphocyte Count 2.16 X10^3/uL (0.83-4.51); Absolute Neutrophil Count 15.9 X10^3/uL (2.0-7.7); Basophil# 0.06 X10^3/uL; Basophil% 0.3 % (0-1); Eosinophil# 0.07 X10^3/uL; Eosinophils% 0.4 % (0-5); Hematocrit 41.2 % (40-54); Hemoglobin 13.2 g/dL (13.0-16.5); Lymphocyte # 2.16 X10^3/ul (0.83-4.51); Lymphocyte % 11.1 % (19-41); Mean Corpuscular Volume 87.3 fL (80-94); Mean Platelet Vol. 9.7 fl (6.2-12.0); Monocyte# 1.12 X10^3/uL; Monocyte% 5.8 % (0-10); NRBC Flagged by Analyzer 0 % (0-5); Neutrophil # 15.88 X10^3/uL (2.7-7.7); Neutrophil % 81.8 % (47-70); Platelet Count 208 K/mm3 (150-450); RBC Distribution Width SD 40.9 fl (35.1-43.9); Red Blood Count 4.72 M/mm3 (4.6-6.2); White Blood Count 19.4 K/mm3 (4.4-11.0)
[2024-06-03 07:14] LABS: AST(SGOT) 28 U/L (15-37); Alanine Aminotransfer ALT/SGPT 39 U/L (16-61); Albumin, Serum 3.2 g/dL (3.2-5.0); Alkaline Phosphatase 69 U/L (45-117); Anion Gap 5 (5-15); BUN 21 mg/dL (7-18); BUN/Creat Ratio 18.6 RATIO (10-20); Calcium,Total 8.4 mg/dL (8.5-10.1); Chloride 105 mmol/L (98-107); Creatinine, Serum 1.13 mg/dL (0.70-1.30); EST Glomerular Filtration Rate 70 mL/min (>60); Est Glom Filt Rate - Afr Amer 85 mL/min (>60); Estimated Creatinine Clearance 102.07 ml/min; Globulin 3.3 g/dL (2.2-4.2); Glucose 111 mg/dL (74-106); Potassium 4.2 mmol/L (3.5-5.1); Protein, Total 6.5 g/dL (6.4-8.2); Sodium Level 135 mmol/L (136-145)
[2024-06-03 07:26] VITALS: O2SAT 97
[2024-06-03] MEDS: Piperacil/Tazobactam 3.375 GM in 0.9% Normal Saline (50mL MB+) 50 ML IV ×3 (07:39→21:47)
[2024-06-03] MEDS: 0.9% Normal Saline (1000mL) 1,000 ML 100 ML IV (07:41)
[2024-06-03 07:58] VITALS: BP 150/77; PULSE 65; RESP 18; TEMP 36.6; O2SAT 95
--- NOTE | 2024-06-03 09:02 | WOUNDNOTE ---
wound photo: left lower leg
--- NOTE | 2024-06-03 09:02 | WOUNDNOTE ---
skin photo: right lower leg
--- NOTE | 2024-06-03 10:22 | CASEMGMT ---
[place] Assessment Face to Face with patient for initial transition planning/care coordination assessment. RN FELIX introduced self and role at [facility], pt voices understanding. Pt is A&Ox4 and is resting comfortably in the chair and is calm. Care providers, pharmacy, and demographics verified. Admitting dx: Cellulitis, Viral Syndrome/ Pneumonia PCP: Quinn Du Specialists: Denies Preferred Pharmacy: [facility] Insurance: MMO Prescription Benefit: yes LNOK: Lesvia Snow (W) Living Arrangements: Pt lives with his in a 2 story home with 2 steps to enter ADLs/IADLs: Ind Transportation: Self, DME: Denies all DME uses or needs at this time HHC/SNF: Denies history or needs Pt?s goal: home Plan: Home with and potentially f/u at [facility] regarding wound care. Pt denies further needs. 6-Click is 24. No therapy ordered. Pt states that he feels safe returning home once he is medically ready. MS3 CM updated and to f/u with the pt about potential [facility] plans. CM to follow. Ham Chua RN, CM
--- NOTE | 2024-06-03 10:39 | VDLE_ITS ---
Reason For Study: LLE Swelling/ Edema RIGHT LEFT FV is compressible, spontaneous, phasic, GSV is normal. competent and demonstrates normal CFV is compressible, spontaneous, phasic, augmentation. competent, and demonstrates normal Procedure augmentation. This is a venous duplex using B-mode, color FV is compressible, spontaneous, phasic, flow and spectral Doppler. competent and demonstrates normal Exam performed portable in patient room. augmentation. The study was technically difficult. POP V is compressible, spontaneous, phasic, Limited views were obtained. competent and demonstrates normal A preliminary report was called and/or faxed augmentation. to M/S 3 adhesion tester Sonali. T/P Trunk is compressible. PTV is compressible. LT PerV is compressible. Peroneal Veins visualized in segments due to swelling and edema. VL/Venous Duplex US, Unilateral Interpretation Summary Deep veins of the left lower extremity are patent and compressible segmentally. There is no evidence of left lower extremity deep vein thrombosis. The left great saphenous vein elise ears patent and compressible segmentally. Ordering Physician: Franchesca Maldonado Referring Physician: Quinn Du Performed By: Anibal Sandoval RVT
[2024-06-03] MEDS: Enoxaparin 40 MG/0.4 ML Syringe SC ×2 (13:14→21:47)
[2024-06-03 13:52] VITALS: BP 158/75; PULSE 75; RESP 18; TEMP 37.3; O2SAT 97
[2024-06-03 15:00] VITALS: PULSE 74
--- NOTE | 2024-06-03 16:43 | PCM.PN.HOSP ---
Reason for Visit Reason for Visit: Diagnoses Cellulitis of left lower limb (06/02/24) Subjective Subjective Feels like he has some increased swelling in his legs but overall feels better than yesterday, has had some chronic problems with right thenar eminence pain that seem to be worse over the past couple of days any curious if it is because he is more swollen today, has not had any further chills, slowly improving Objective Data Objective Data Vital Signs: Vital Signs Temp Pulse Resp BP Pulse Ox O2 Del Method 99.1 F 75 18 158/75 H 97 Room Air 06/03/24 13:52 06/03/24 13:52 06/03/24 13:52 06/03/24 13:52 06/03/24 13:52 06/03/24 13:52 Oxygen Delivery Method Room Air Weight: 146.8 kg Body Mass Index (BMI) 46.3 Intake & Output: Intake and Output for Last 24 Hours 06/01/24 06/02/24 06/03/24 23:59 23:59 23:59 Intake Total 2590 / 2590 2380 / 2380 Balance 2590 / 2590 2380 / 2380 Lab / Micro Data 06/03/24 06:30 06/03/24 06:30 Labs: Laboratory Results - last 24 hr 06/02/24 18:03: WBC 14.9 H, RBC 5.20, Hgb 14.7, Hct 43.9, MCV 84.4, MCH 28.3, MCHC 33.5, RDW Std Deviation 38.3, RDW Coeff of Rebecca 12.6, Plt Count 234, MPV 9.5, Immature Gran % (Auto) 0.500, Neut % (Auto) 90.4 H, Lymph % (Auto) 4.1 L, [place] % (Auto) 4.5, Eos % (Auto) 0.2, Baso % (Auto) 0.3, Absolute Neuts (auto) 13.4 H, Absolute Lymphs (auto) 0.61 L, Nucleated RBC % 0, PT 14.9, INR 1.2, APTT 30.9, Sodium 133 L, Potassium 3.5, Chloride 103, Carbon Dioxide 23.0, Anion Gap 7, BUN 21 H, Creatinine 1.11, Estim Creat Clear Calc 103.86, Est GFR (MDRD) Af Amer 87, Est GFR (MDRD) Non-Af 72, BUN/Creatinine Ratio 18.9, Glucose 108 H, Lactic Acid 2.4 H*, Calcium 9.2, Total Bilirubin 0.90, AST 33, ALT 51, Alkaline Phosphatase 86, Total Protein 7.3, Albumin 3.8, Globulin 3.5, Albumin/Globulin Ratio 1.1 06/02/24 19:30: Urine Color Yellow, Urine Clarity Clear, Urine pH 7.0, Ur Specific [place] 1.010, Urine Protein 15 H, Urine Glucose (UA) Normal, Urine Ketones Negative, Urine Occult Blood 10 H, Urine Nitrite Negative, Urine Bilirubin Negative, Urine Urobilinogen 8 H, Ur Leukocyte Esterase Negative, Urine RBC 0 SEEN, Urine WBC 0 SEEN, Ur Squamous Epith Cells 0 SEEN, Urine Bacteria 0 SEEN, Urine Mucus 0 SEEN 06/02/24 22:30: Lactic Acid 1.5 06/03/24 06:30: WBC 19.4 H, RBC 4.72, Hgb 13.2, Hct 41.2, MCV 87.3, MCH 28.0, MCHC 32.0, RDW Std Deviation 40.9, RDW Coeff of Rebecca 13.0, Plt Count 208, MPV 9.7, Immature Gran % (Auto) 0.600, Neut % (Auto) 81.8 H, Lymph % (Auto) 11.1 L, [place] % (Auto) 5.8, Eos % (Auto) 0.4, Baso % (Auto) 0.3, Absolute Neuts (auto) 15.9 H, Absolute Lymphs (auto) 2.16, Nucleated RBC % 0, Sodium 135 L, Potassium 4.2, Chloride 105, Carbon Dioxide 25.0, Anion Gap 5, BUN 21 H, Creatinine 1.13, Estim Creat Clear Calc 102.07, Est GFR (MDRD) Af Amer 85, Est GFR (MDRD) Non-Af 70, BUN/Creatinine Ratio 18.6, Glucose 111 H, Calcium 8.4 L, Total Bilirubin 1.20 H, AST 28, ALT 39, Alkaline Phosphatase 69, Total Protein 6.5, Albumin 3.2, Globulin 3.3, Albumin/Globulin Ratio 1.0 Micro: Microbiology 06/02/24 21:30 Skin - Leg Gram Stain - Final 06/02/24 21:30 Skin - Leg Wound Culture - Preliminary GNR 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 Minimal RIGHT basilar atelectasis. 2. No evidence of congestive failure, airspace consolidation or effusion. Electronically Signed: Dale García MD at 19:07 EDT , Chest X-Ray 06/03/24 06:00 IMPRESSION: Normal x-ray examination of the chest. Electronically Signed: Dale Yoder MD at 8:03 EDT , Venous Doppler Study 06/03/24 10:39 Interpretation Summary Deep veins of the left lower extremity are patent and compressible segmentally. There is no evidence of left lower extremity deep vein thrombosis. The left great saphenous vein appears patent and compressible segmentally. Ordering Physician: Franchesca Maldonado Referring Physician: Quinn Du Performed By: Anibal Sandoval, VENNACIO Physical Exam Narrative General: Alert, oriented, no apparent distress HEENT: Atraumatic, normocephalic Eyes: Anicteric, normal conjunctiva, extraocular movements grossly intact Neck: Supple Respiratory: Clear to auscultation bilaterally, normal respiratory effort Cardiovascular: Regular rate and rhythm GI: Soft, nontender, nondistended Extremities: Bilateral lower extremity edema, erythema left leg greater than right, no significant tenderness over right thenar eminence Musculoskeletal: Moving all extremities Neuro: No overt focal neurological deficits Skin: Some erythema of left lower extremity Psych: Cooperative Assessment & Plan Assessment/Plan (1) Cellulitis of left leg: PLAN: Plan #Acute cellulitis of LLE -In setting of recent scrape -Elevate legs -MRSA/MSSA screen negative and wound culture growing gram-negative 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 -Complicates treatment, prognosis, outcomes -Recommend weight loss and lifestyle changes #DVT ppx: Lovenox subcu Franchesca Maldonado MD Time spent in the patient's overall evaluation,decision-making process, review of diagnostic data, adjustment of management, discussion with other providers, nursing nursing and ancillary staff involved in patient's care documentation, 35 minutes Charges/Coding Visit Charges Inpatient E&M: 33584 Subs Hosp L2
[2024-06-03 21:50] VITALS: BP 144/77; PULSE 82; RESP 16; TEMP 37.5; O2SAT 95
[2024-06-04] VITALS (7 sets, daily range): BP systolic 134–164; BP diastolic 70–85; PULSE 74–79; RESP 16–20; TEMP 36.6–36.9; O2SAT 95–98
[2024-06-04] MEDS: Acetaminophen 325 MG Tablet 650 MG PO ×3 (02:55→18:05)
[2024-06-04] MEDS: Piperacil/Tazobactam 3.375 GM in 0.9% Normal Saline (50mL MB+) 50 ML IV ×3 (06:12→22:36)
[2024-06-04 08:33] LABS: Absolute Lymphocyte Count 1.79 X10^3/uL (0.83-4.51); Absolute Neutrophil Count 9.5 X10^3/uL (2.0-7.7); Basophil# 0.03 X10^3/uL; Basophil% 0.2 % (0-1); Eosinophils% 0.8 % (0-5); Hematocrit 37.8 % (40-54); Hemoglobin 12.5 g/dL (13.0-16.5); Lymphocyte # 1.79 X10^3/ul (0.83-4.51); Lymphocyte % 14.4 % (19-41); Mean Corp Hgb Conc 33.1 g/dL (32-36); Mean Corpuscular Hgb 28.7 pg (27.0-32.0); Mean Corpuscular Volume 86.9 fL (80-94); Mean Platelet Vol. 10.1 fl (6.2-12.0); Monocyte# 0.95 X10^3/uL; Monocyte% 7.6 % (0-10); NRBC Flagged by Analyzer 0 % (0-5); Neutrophil # 9.52 X10^3/uL (2.7-7.7); Neutrophil % 76.6 % (47-70); Platelet Count 185 K/mm3 (150-450); RBC Distribution Width SD 41.1 fl (35.1-43.9); Red Blood Count 4.35 M/mm3 (4.6-6.2); White Blood Count 12.4 K/mm3 (4.4-11.0)
[2024-06-04] MEDS: Enoxaparin 40 MG/0.4 ML Syringe SC ×2 (08:34→22:35)
[2024-06-04 08:43] LABS: Anion Gap 5 (5-15); BUN 16 mg/dL (7-18); BUN/Creat Ratio 17.4 RATIO (10-20); Calcium,Total 8.7 mg/dL (8.5-10.1); Chloride 105 mmol/L (98-107); Creatinine, Serum 0.92 mg/dL (0.70-1.30); EST Glomerular Filtration Rate 90 mL/min (>60); Est Glom Filt Rate - Afr Amer 108 mL/min (>60); Estimated Creatinine Clearance 125.36 ml/min; Glucose 96 mg/dL (74-106); Potassium 3.7 mmol/L (3.5-5.1); Sodium Level 135 mmol/L (136-145)
[2024-06-04] MEDS: Furosemide 40 MG Tablet PO (15:35)
--- NOTE | 2024-06-04 16:17 | PN.HOSP_ITS ---
Reason for Visit Reason for Visit: Diagnoses Cellulitis of left lower limb (06/02/24) Subjective Subjective Patient feeling slightly better this morning still having swelling but erythema improving, has been up walking around and doing well with this Objective Data Objective Data Vital Signs: Vital Signs Temp Pulse Resp BP Pulse Ox O2 Del Method 98.3 F 74 18 136/71 H 98 Room Air 06/04/24 14:40 06/04/24 14:40 06/04/24 14:40 06/04/24 14:40 06/04/24 14:40 06/04/24 14:40 Oxygen Delivery Method Room Air Weight: 146.8 kg Body Mass Index (BMI) 46.3 Intake & Output: Intake and Output for Last 24 Hours 06/02/24 06/03/24 06/04/24 23:59 23:59 23:59 Intake Total 2590 / 2590 5799 / 6099 600 / 600 Balance 2590 / 2590 5799 / 6099 600 / 600 Lab / Micro Data 06/04/24 07:40 06/04/24 07:40 Labs: Laboratory Results - last 24 hr 06/04/24 07:40: WBC 12.4 H, RBC 4.35 L, Hgb 12.5 L, Hct 37.8 L, MCV 86.9, MCH 28.7, MCHC 33.1, RDW Std Deviation 41.1, RDW Coeff of Rebecca 13.0, Plt Count 185, MPV 10.1, Immature Gran % (Auto) 0.400, Neut % (Auto) 76.6 H, Lymph % (Auto) 14.4 L, [place] % (Auto) 7.6, Eos % (Auto) 0.8, Baso % (Auto) 0.2, Absolute Neuts (auto) 9.5 H, Absolute Lymphs (auto) 1.79, Nucleated RBC % 0, Sodium 135 L, Potassium 3.7, Chloride 105, Carbon Dioxide 25.0, Anion Gap 5, BUN 16, Creatinine 0.92, Estim Creat Clear Calc 125.36, Est GFR (MDRD) Af Amer 108, Est GFR (MDRD) Non-Af 90, BUN/Creatinine Ratio 17.4, Glucose 96, Calcium 8.7 Micro: Microbiology 06/02/24 21:30 Skin - Leg Gram Stain - Final 06/02/24 21:30 Skin - Leg Wound Culture - Preliminary Enterobacter cloacae complex 06/02/24 19:30 Urine, Clean Catch Urine Culture - Final Culture exhibits no growth. 06/02/24 12:47 Urine, Clean Catch Legionella Antigen - Final 06/02/24 12:47 Urine, Clean Catch Streptococcus pneumoniae Antigen (M - Final 06/02/24 22:46 Mucosa - Nasopharyngeal Respiratory Panel (PCR) - Final 06/02/24 21:30 Wound - Leg, Left Skin and Soft Tissue MRSA/MSSA (PCR - Final 06/02/24 18:15 Mucosa - Nose SARS-CoV-2, Influenza & RSV (PCR) - Final Physical Exam Narrative General: Alert, oriented, no apparent distress HEENT: Atraumatic, normocephalic Eyes: Anicteric, normal conjunctiva, extraocular movements grossly intact Neck: Supple Respiratory: Clear to auscultation bilaterally, normal respiratory effort Cardiovascular: Regular rate and rhythm GI: Soft, nontender, nondistended Extremities: Bilateral lower extremity edema, erythema left leg greater than right, but this is improving Musculoskeletal: Moving all extremities Neuro: No overt focal neurological deficits Skin: Some erythema of left lower extremity Psych: Cooperative Assessment & Plan Assessment/Plan (1) Cellulitis of left leg: PLAN: Plan #Acute cellulitis of LLE?secondary to Enterobacter cloacae complex -In setting of recent scrape -Elevate legs -MRSA/MSSA screen negative and wound culture growing gram-negative 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 Suspect 1 more day of IV antibiotics while blood cultures pending and possible DC home tomorrow on oral Levaquin if patient doing well #BLE swelling -Patient reports he has felt swollen after everything he is gone through the IV, is not having any problems breathing and vitally stable however does seem to be retaining some fluid, will give a dose of Lasix, discussed that depending on the course of his swelling he may need further workup if this does not resolve, likely will not need to be done on an inpatient basis however given stability if patient is stable for discharge #Hypertension -Does not take anything daily -Will avoid amlodipine as this can cause increased swelling lower extremities, will avoid hydrochlorothiazide given hyponatremia, will likely start lisinopril in next 1 to 2 days if infection improving kidney function stable, has as needed medication at this time if needed -06/04: BP somewhat lower today, continue to observe #Morbid obesity -BMI 46.4 kg/m? -Complicates treatment, prognosis, outcomes -Recommend weight loss and lifestyle changes #DVT ppx: Lovenox subcu Franchesca Maldonado MD Time spent in the patient's overall evaluation,decision-making process, review of diagnostic data, adjustment of management, discussion with other providers, nursing nursing and ancillary staff involved in patient's care documentation, 30 minutes Charges/Coding Visit Charges Inpatient E&M: 70595 Subs Hosp L1
[2024-06-04] MEDS: hydrALAZINE 20 MG/ML Vial 10 MG IV (23:08)
[2024-06-04] MEDS: Ketorolac 15 MG/ML Vial IV (23:09)
[2024-06-05 05:14] VITALS: BP 149/74; PULSE 69; RESP 16; TEMP 37; O2SAT 98
[2024-06-05] MEDS: Acetaminophen 325 MG Tablet 650 MG PO ×2 (05:20→21:39)
[2024-06-05 06:00] VITALS: BMI 46.2
[2024-06-05 07:35] LABS: Absolute Lymphocyte Count 1.73 X10^3/uL (0.83-4.51); Absolute Neutrophil Count 6.2 X10^3/uL (2.0-7.7); Basophil# 0.03 X10^3/uL; Basophil% 0.3 % (0-1); Eosinophil# 0.13 X10^3/uL; Eosinophils% 1.5 % (0-5); Hematocrit 37.7 % (40-54); Hemoglobin 12.5 g/dL (13.0-16.5); Lymphocyte # 1.73 X10^3/ul (0.83-4.51); Lymphocyte % 19.4 % (19-41); Mean Corp Hgb Conc 33.2 g/dL (32-36); Mean Corpuscular Volume 84.5 fL (80-94); Mean Platelet Vol. 9.5 fl (6.2-12.0); Monocyte# 0.83 X10^3/uL; Monocyte% 9.3 % (0-10); NRBC Flagged by Analyzer 0 % (0-5); Neutrophil # 6.15 X10^3/uL (2.7-7.7); Neutrophil % 69.2 % (47-70); Platelet Count 205 K/mm3 (150-450); RBC Distribution Width CV 12.8 % (11.6-14.6); RBC Distribution Width SD 39.7 fl (35.1-43.9); Red Blood Count 4.46 M/mm3 (4.6-6.2); White Blood Count 8.9 K/mm3 (4.4-11.0)
[2024-06-05 08:07] LABS: Anion Gap 7 (5-15); BUN 15 mg/dL (7-18); BUN/Creat Ratio 17.1 RATIO (10-20); Chloride 105 mmol/L (98-107); Creatinine, Serum 0.88 mg/dL (0.70-1.30); EST Glomerular Filtration Rate 94 mL/min (>60); Est Glom Filt Rate - Afr Amer 114 mL/min (>60); Estimated Creatinine Clearance 130.91 ml/min; Glucose 96 mg/dL (74-106); Potassium 3.4 mmol/L (3.5-5.1); Sodium Level 135 mmol/L (136-145)
[2024-06-05 08:50] VITALS: O2SAT 92
[2024-06-05 09:50] VITALS: BP 140/72; PULSE 75; RESP 20; TEMP 36.6; O2SAT 97
[2024-06-05] MEDS: Potassium Chloride Oral Tablet 20 MEQ 40 MEQ PO (09:54)
[2024-06-05] MEDS: levoFLOXacin IV 750 MG in Empty Viaflex Q24 100 MG IV (09:54)
[2024-06-05] MEDS: Enoxaparin 40 MG/0.4 ML Syringe SC ×2 (09:54→21:23)
--- NOTE | 2024-06-05 10:07 | NURSING ---
This RN asked pt if he would like this RN to ask hospitalist if pt could receive a stool softener/laxative since it has been three days since last bowel movement. Pt denied need for stimulant and says he doesn't feel like he needs to go. Abdomen large and distended, will make physician aware and continue to monitor.
--- NOTE | 2024-06-05 10:37 | CASEMGMT ---
LUIS WASHINGTON into pt room, pt sitting up in chair with legs elevated and at bedside. Pt states he is not interested in going to the [facility] but his wants him to. Asked if pt would like this LUIS WASHINGTON to make an appt for him or if he would like a pamphlet and he make on his own. Pt states he prefers the pamphlet. Pt states she will perform dressing changes for pt. Pt states he does not want [facility] to see him. Provided [facility] pamphlet. Pt and deny any further questions.
[2024-06-05 14:33] VITALS: BP 165/75; PULSE 75; RESP 18; TEMP 37; O2SAT 98
[2024-06-05] MEDS: Furosemide 20 MG Tablet PO (15:12)
--- NOTE | 2024-06-05 16:23 | PN.HOSP_ITS ---
Reason for Visit Reason for Visit: Diagnoses Cellulitis of left lower limb (06/02/24) Subjective Subjective Patient still has some discomfort and tightness in left leg but does feel right leg is little less swollen, has been up ambulating and reports trying to keep leg elevated when possible Objective Data Objective Data Vital Signs: Vital Signs Temp Pulse Resp BP Pulse Ox O2 Del Method 98.6 F 75 18 165/75 H 98 Room Air 06/05/24 14:33 06/05/24 14:33 06/05/24 14:33 06/05/24 14:33 06/05/24 14:33 06/05/24 14:33 Oxygen Delivery Method Room Air Weight: 146.5 kg Body Mass Index (BMI) 46.2 Intake & Output: Intake and Output for Last 24 Hours 06/03/24 06/04/24 06/05/24 23:59 23:59 23:59 Intake Total 5799 / 6099 950 / 950 400 / 400 Balance 5799 / 6099 950 / 950 400 / 400 Lab / Micro Data 06/05/24 07:17 06/05/24 07:17 Labs: Laboratory Results - last 24 hr 06/05/24 07:17: WBC 8.9, RBC 4.46 L, Hgb 12.5 L, Hct 37.7 L, MCV 84.5, MCH 28.0, MCHC 33.2, RDW Std Deviation 39.7, RDW Coeff of Rebecca 12.8, Plt Count 205, MPV 9.5, Immature Gran % (Auto) 0.300, Neut % (Auto) 69.2, Lymph % (Auto) 19.4, [place] % (Auto) 9.3, Eos % (Auto) 1.5, Baso % (Auto) 0.3, Absolute Neuts (auto) 6.2, Absolute Lymphs (auto) 1.73, Nucleated RBC % 0, Sodium 135 L, Potassium 3.4 L, Chloride 105, Carbon Dioxide 23.0, Anion Gap 7, BUN 15, Creatinine 0.88, Estim Creat Clear Calc 130.91, Est GFR (MDRD) Af Amer 114, Est GFR (MDRD) Non-Af 94, BUN/Creatinine Ratio 17.1, Glucose 96, Calcium 9.0 Micro: Microbiology 06/02/24 18:15 Blood Culture (Wb) - Right Hand Blood Culture - Preliminary No growth in 48 hours. 06/02/24 18:03 Blood Culture (Wb) - Right Hand Blood Culture - Preliminary No growth in 48 hours. 06/03/24 12:47 Sputum, Expectorated/Coughed Gram Stain - Final 06/03/24 12:47 Sputum, Expectorated/Coughed Respiratory Culture - Preliminary Appears to be normal respiratory ubaldo. Further studies to follow. 06/02/24 21:30 Skin - Leg Gram Stain - Final 06/02/24 21:30 Skin - Leg Wound Culture - Preliminary Enterobacter cloacae complex Staphylococcus species 06/02/24 19:30 Urine, Clean Catch Urine Culture - Final Culture exhibits no growth. 06/02/24 12:47 Urine, Clean Catch Legionella Antigen - Final 06/02/24 12:47 Urine, Clean Catch Streptococcus pneumoniae Antigen (M - Final 06/02/24 22:46 Mucosa - Nasopharyngeal Respiratory Panel (PCR) - Final 06/02/24 21:30 Wound - Leg, Left Skin and Soft Tissue MRSA/MSSA (PCR - Final 06/02/24 18:15 Mucosa - Nose SARS-CoV-2, Influenza & RSV (PCR) - Final Physical Exam Narrative General: Alert, oriented, no apparent distress HEENT: Atraumatic, normocephalic Eyes: Anicteric, normal conjunctiva, extraocular movements grossly intact Neck: Supple Respiratory: Clear to auscultation bilaterally, normal respiratory effort Cardiovascular: Regular rate and rhythm GI: Soft, nontender, nondistended Extremities: Bilateral lower extremity edema, erythema left leg greater than right Musculoskeletal: Moving all extremities Neuro: No overt focal neurological deficits Skin: Some erythema of left lower extremity which seems to be improving, dressing still over lesion on left lower extremity with mild drainage Psych: Cooperative Assessment & Plan Assessment/Plan (1) Cellulitis of left leg: PLAN: Plan #Acute cellulitis of LLE?secondary to Enterobacter cloacae complex -In setting of recent scrape -Elevate legs -MRSA/MSSA screen negative and wound culture growing gram-negative 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 Suspect 1 more day of IV antibiotics while blood cultures pending and possible DC home tomorrow on oral Levaquin if patient doing well -06/05: Patient now growing staph species as well and wound culture, awaiting speciation, given patient is still having some erythema and discomfort and swelling unclear if it is just slow to respond or if this additional organism may be culprit, head lower extremity ultrasound on presentation and no DVT noted, rest legs as able, can consider ID consult pending culture and patient progress. White blood cell count is back to normal so suspect patient may be slow to improve but cannot say this definitively given cultures and physical exam #BLE swelling -Patient reports he has felt swollen after everything he is gone through the IV, is not having any problems breathing and vitally stable however does seem to be retaining some fluid, will give a dose of Lasix, discussed that depending on the course of his swelling he may need further workup if this does not resolve, likely will not need to be done on an inpatient basis however given stability if patient is stable for discharge -06/05: Did feel that Lasix was somewhat helpful more for right leg than left, will give additional dose, continue Mika wrap to lower extremities, keep elevated when possible #Hypertension -Does not take anything daily -Will avoid amlodipine as this can cause increased swelling lower extremities, will avoid hydrochlorothiazide given hyponatremia, will likely start lisinopril in next 1 to 2 days if infection improving kidney function stable, has as needed medication at this time if needed -06/04: BP somewhat lower today, continue to observe -06/05: Remains elevated, will start lisinopril #Morbid obesity -BMI 46.4 kg/m? -Complicates treatment, prognosis, outcomes -Recommend weight loss and lifestyle changes #DVT ppx: Lovenox subcu Franchesca Maldonado MD Time spent in the patient's overall evaluation,decision-making process, review of diagnostic data, adjustment of management, discussion with other providers, nursing nursing and ancillary staff involved in patient's care documentation, 36 minutes Charges/Coding Visit Charges Inpatient E&M: 82369 Subs Hosp L2
[2024-06-05 16:49] VITALS: BP 148/73; PULSE 83; RESP 18; TEMP 36.9; O2SAT 97
[2024-06-05] MEDS: Lisinopril 5 MG Tablet PO (17:45)
[2024-06-05 21:24] VITALS: BP 156/81; PULSE 74; RESP 16; TEMP 37.1; O2SAT 96
[2024-06-06 04:53] VITALS: BP 154/76; PULSE 67; RESP 16; TEMP 37.1; O2SAT 98
[2024-06-06] MEDS: Acetaminophen 325 MG Tablet 650 MG PO (04:56)
[2024-06-06 08:10] LABS: Absolute Lymphocyte Count 1.81 X10^3/uL (0.83-4.51); Absolute Neutrophil Count 4.4 X10^3/uL (2.0-7.7); Basophil# 0.04 X10^3/uL; Basophil% 0.6 % (0-1); Eosinophil# 0.22 X10^3/uL; Eosinophils% 3.1 % (0-5); Hematocrit 39.1 % (40-54); Lymphocyte # 1.81 X10^3/ul (0.83-4.51); Lymphocyte % 25.1 % (19-41); Mean Corp Hgb Conc 33.2 g/dL (32-36); Mean Corpuscular Hgb 28.4 pg (27.0-32.0); Mean Corpuscular Volume 85.6 fL (80-94); Mean Platelet Vol. 9.6 fl (6.2-12.0); Monocyte# 0.67 X10^3/uL; Monocyte% 9.3 % (0-10); NRBC Flagged by Analyzer 0 % (0-5); Neutrophil # 4.43 X10^3/uL (2.7-7.7); Neutrophil % 61.3 % (47-70); Platelet Count 239 K/mm3 (150-450); RBC Distribution Width CV 12.8 % (11.6-14.6); RBC Distribution Width SD 39.5 fl (35.1-43.9); Red Blood Count 4.57 M/mm3 (4.6-6.2); White Blood Count 7.2 K/mm3 (4.4-11.0)
[2024-06-06 08:38] LABS: Anion Gap 7 (5-15); BUN 12 mg/dL (7-18); BUN/Creat Ratio 14.9 RATIO (10-20); Chloride 104 mmol/L (98-107); Creatinine, Serum 0.81 mg/dL (0.70-1.30); EST Glomerular Filtration Rate 104 mL/min (>60); Est Glom Filt Rate - Afr Amer 126 mL/min (>60); Estimated Creatinine Clearance 142.22 ml/min; Glucose 94 mg/dL (74-106); Potassium 3.8 mmol/L (3.5-5.1); Sodium Level 135 mmol/L (136-145)
[2024-06-06 10:12] VITALS: BP 146/77; PULSE 70; RESP 18; TEMP 36.6; O2SAT 97
[2024-06-06] MEDS: Lisinopril 5 MG Tablet PO (10:22)
[2024-06-06] MEDS: levoFLOXacin IV 750 MG in Empty Viaflex Q24 100 MG IV (10:24)
--- NOTE | 2024-06-06 10:43 | DCINST_ITS ---
Discharge Instructions Diet Discharge Diet: - (DASH diet) Activity Discharge Activity: - (Keep legs elevated was able) Follow Up Care Test Results: Test results from this visit will be discussed in further detail at your follow- up appointment, if applicable. Discharge Plan Admission Admit Date/Time: 06/02/24 19:36 Primary Reason for Your Visit: Left leg infection Attending Provider: Franchesca Maldonado Primary Care Provider: Quinn Du Consulting Providers: Claudia Hunter Instructions Patient Instructions: Cellulitis Dc Discharge Orders/Prescriptions Prescriptions: New lisinopril 5 mg Tablet 5 mg PO DAILY 30 Days Qty: 30 0RF levofloxacin 750 mg tablet 750 mg PO DAILY 10 Days Qty: 10 0RF Continued tadalafil [Cialis] 20 mg tablet 20 mg PO QDAY PRN (Reason: sexual activity) Qty: 10 3RF Rx Instructions: administer approximately 30min before sexual activity; do not use more than 1 dose per 24hrs Referrals / Follow Up: Quinn Du, [Primary Care Provider] - Within 1 Week Disposition Disposition (needs filled in before D/C Order can be placed): Home, Self Care
--- NOTE | 2024-06-06 10:48 | DS.PCM_ITS ---
Providers Date of Admission: 06/02/24 Date of Discharge: 06/06/24 Primary Care Physician: Dr. 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 Reason For Visit: CELLULITIS Diagnosis Discharge Diagnosis (1) Cellulitis of left leg: Status: Acute Code(s): L03.116 - Cellulitis of left lower limb Plan #Acute cellulitis of LLE?secondary to Enterobacter cloacae complex and Staphylococcus pseudintermediu #BLE swelling #Hypertension #Morbid obesity Medications at Discharge Home Medications tadalafil 20 mg tablet (Cialis) 20 mg PO QDAY PRN sexual activity #10 tabs 01/24/24 levofloxacin 750 mg tablet 750 mg PO DAILY 10 days #10 tabs 06/06/24 lisinopril 5 mg tablet 5 mg PO DAILY 30 days #30 tabs 06/06/24 Hospital Course Summary of Care Provided Minutes Spent on Discharge: 31 Hospital Course: 58-year-old male with chronic bilateral lower extremity lymphedema and morbid obesity presented to [facility] ED 06/02/2024 with fatigue, weakness, nausea and emesis as well as left lower extremity erythema around a recent scrape. In ED patient had a temp of 100.5 with a heart rate of 104 and was noted to have erythema of left lower extremity, patient admitted and culture taken of wound on leg which grew Enterobacter and staph, antibiotics were changed to Levaquin and patient slowly improved, did have lymphedema and had legs wrapped, did feel he had a little extra fluid on him, suspect this is due to patient's illness and fluids that he received through antibiotics/IV so he was given 2 doses of Lasix with improvement. Discussed he should follow-up with his outpatient physician in the event this does not improve. On day of discharge patient does report continued albeit slow improvement and is agreeable to discharge home. Also given elevated blood pressure patient did have lisinopril started and he verbalized his understanding. He was not started on hydrochlorothiazide due to his sodium and was not started on amlodipine due to not wanting to increase swelling in legs Physical Exam Narrative General: Alert, oriented, no apparent distress HEENT: Atraumatic, normocephalic Eyes: Anicteric, normal conjunctiva, extraocular movements grossly intact Neck: Supple Respiratory: normal respiratory effort Cardiovascular: Regular rate and rhythm GI: Soft, nontender, nondistended Extremities: Bilateral lower extremity edema, erythema left leg greater than right, much improved Musculoskeletal: Moving all extremities Neuro: No overt focal neurological deficits Skin: Erythema improved Psych: Cooperative Weight / BMI Weight Weight: 146.5 kg Body Mass Index (BMI) 46.2 ABG / Lab / Microbiology Data 06/06/24 07:35 06/06/24 07:35 Laboratory: Laboratory Results - last 24 hr 06/06/24 07:35: WBC 7.2, RBC 4.57 L, Hgb 13.0, Hct 39.1 L, MCV 85.6, MCH 28.4, MCHC 33.2, RDW Std Deviation 39.5, RDW Coeff of Rebecca 12.8, Plt Count 239, MPV 9.6, Immature Gran % (Auto) 0.600, Neut % (Auto) 61.3, Lymph % (Auto) 25.1, [place] % (Auto) 9.3, Eos % (Auto) 3.1, Baso % (Auto) 0.6, Absolute Neuts (auto) 4.4, Absolute Lymphs (auto) 1.81, Nucleated RBC % 0, Sodium 135 L, Potassium 3.8, Chloride 104, Carbon Dioxide 24.0, Anion Gap 7, BUN 12, Creatinine 0.81, Estim Creat Clear Calc 142.22, Est GFR (MDRD) Af Amer 126, Est GFR (MDRD) Non-Af 104, BUN/Creatinine Ratio 14.9, Glucose 94, Calcium 9.0 Microbiology: Microbiology 06/03/24 12:47 Sputum, Expectorated/Coughed Gram Stain - Final 06/03/24 12:47 Sputum, Expectorated/Coughed Respiratory Culture - Final Mixed normal respiratory ubaldo. No Streptococcus pneumoniae, beta-hemolytic Streptococcus or Staphylococcus aureus isolated. 06/02/24 21:30 Skin - Leg Gram Stain - Final 06/02/24 21:30 Skin - Leg Wound Culture - Final Enterobacter cloacae complex Staphylococcus pseudintermediu 06/02/24 18:15 Blood Culture (Wb) - Right Hand Blood Culture - Preliminary No growth in 48 hours. 06/02/24 18:03 Blood Culture (Wb) - Right Hand Blood Culture - Preliminary No growth in 48 hours. 06/02/24 19:30 Urine, Clean Catch Urine Culture - Final Culture exhibits no growth. 06/02/24 12:47 Urine, Clean Catch Legionella Antigen - Final 06/02/24 12:47 Urine, Clean Catch Streptococcus pneumoniae Antigen (M - Final 06/02/24 22:46 Mucosa - Nasopharyngeal Respiratory Panel (PCR) - Final 06/02/24 21:30 Wound - Leg, Left Skin and Soft Tissue MRSA/MSSA (PCR - Final 06/02/24 18:15 Mucosa - Nose SARS-CoV-2, Influenza & RSV (PCR) - Final D/C Instructions Discharge Diet: - (DASH diet) Meaningful Use Info Meaningful Use Meaningful Use Diagnoses (Choose all that apply): None applicable Ischemic Stroke Statin Dosing Therapy Reference: STATIN DOSE THERAPY REFERENCE: * Patients > 75 years receive moderate or high dose statin therapy. * Patients 75 years or YOUNGER should receive HIGH intensity statin dose unless contraindicated. You will be required to document reason for non-treatment if statin daily dose does not meet guidelines. HIGH DOSE STATIN THERAPY DAILY Atorvastatin > than or = to 40 mg Rosuvastatin > than or = to 20 mg Amlodipine + Atorvastatin > than or = to 2.5/40 mg Ezetimibe + Simvastatin 10/80 mg Simvastatin 80mg Discharge Plan Admission Admit Date/Time: 06/02/24 19:36 Primary Reason for Your Visit: Left leg infection Attending Provider: Franchesca Maldonado Primary Care Provider: Quinn Du Consulting Providers: Claudia Hunter Instructions Patient Instructions: Cellulitis Dc Discharge Orders/Prescriptions Prescriptions: New lisinopril 5 mg Tablet 5 mg PO DAILY 30 Days Qty: 30 0RF levofloxacin 750 mg tablet 750 mg PO DAILY 10 Days Qty: 10 0RF Continued tadalafil [Cialis] 20 mg tablet 20 mg PO QDAY PRN (Reason: sexual activity) Qty: 10 3RF Rx Instructions: administer approximately 30min before sexual activity; do not use more than 1 dose per 24hrs Referrals / Follow Up: Quinn Du DO [Primary Care Provider] - 06/13/24 2:00 pm (This appointment is with Boris VELEZ) Disposition Disposition (needs filled in before D/C Order can be placed): Home, Self Care Charges/Coding Visit Charges Inpatient E&M: 70059 Disch Hosp >30min
--- NOTE | 2024-06-06 11:16 | PHA.DC.MC.R ---
Pharmacy [facility] has performed discharge medication reconciliation and counseling for this patient. The patient's discharge medication list was reviewed for discrepancies and discrepancies were resolved. The patient was counseled on the following discharge medications and changes in medications for homegoing were reviewed. 1. LEVAQUIN 2. LISINOPRIL The Reason for Use, instructions for use, and potential side effects were reviewed for all new medications. The patient's questions regarding all of their medications were answered. The patient was able to verbally demonstrate an understanding of their discharge medications. The patient was counselled by Chandler Dick PharmD Candidate Medications at Discharge Home Medications tadalafil 20 mg tablet (Cialis) 20 mg PO QDAY PRN sexual activity #10 tabs 01/24/24 levofloxacin 750 mg tablet 750 mg PO DAILY 10 days #10 tabs 06/06/24 lisinopril 5 mg tablet 5 mg PO DAILY 30 days #30 tabs 06/06/24
--- NOTE | 2024-06-06 11:26 | CASEMGMT ---
LUIS WASHINGTON NOTE: Discharge order is in. Script for wound care supplies obtained from Dr Maldonado. LUIS WASHINGTON to room. Pt sitting up in chair in room. Introduced self and role. Pt provided w/script for supplies and instructed on use. He is aware scripts for medications have been sent to [facility] pharmacy. 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 He again denies need for appt to be made @ by LUIS WASHINGTON, stating he and his will take care of that. He denies having any further discharge needs/concerns. Suzie ROMERON LUIS CM
== END 2024-06-06 13:35 | disposition home or self-care (01) | DRG 603 ==
LOC: ED 19:36 → MS3 19:43
PROVIDERS: Nurse Practitioner; Admitting Provider Family Medicine; Emergency Provider Emergency Medicine; PCP Family Medicine; Visit Provider Internal Medicine
DX: L03.116 Cellulitis of left lower limb (principal); Z68.42 Body mass index [BMI] 45.0-49.9, adult; B95.7 Other staphylococcus as the cause of diseases classified elsewhere; E66.01 Morbid (severe) obesity due to excess calories; I12.9 Hypertensive chronic kidney disease with stage 1 through stage 4 chronic kidney disease, or unspecified chronic kidney disease; F32.A Depression, unspecified; I89.0 Lymphedema, not elsewhere classified; N18.2 Chronic kidney disease, stage 2 (mild); F41.9 Anxiety disorder, unspecified; B95.2 Enterococcus as the cause of diseases classified elsewhere; Z79.899 Other long term (current) drug therapy; Z86.16 Personal history of COVID-19
CPT/HCPCS: 36415; 71045; 80048; 80053; 81001; 83605; 85025; 85610; 85730; 87040; 87070; 87077; 87086; 87186; 87205; 87449; 87631; 87633; 87640; 93005; 93971; 94668; 97802; 99285; J7030; J7040; A4216; J2405

== ENCOUNTER → 2024-07-03 | Outpatient (CLI) | payer OTHER, SELFPAY ==
[2024-07-03 12:19] LABS: Absolute Lymphocyte Count 0.93 X10^3/uL (0.83-4.51); Basophil# 0.03 X10^3/uL; Basophil% 0.3 % (0-1); Eosinophil# 0.02 X10^3/uL; Eosinophils% 0.2 % (0-5); Hematocrit 42.1 % (40-54); Hemoglobin 13.9 g/dL (13.0-16.5); Lymphocyte # 0.93 X10^3/ul (0.83-4.51); Lymphocyte % 7.8 % (19-41); Mean Corpuscular Hgb 27.6 pg (27.0-32.0); Mean Corpuscular Volume 83.5 fL (80-94); Mean Platelet Vol. 10.1 fl (6.2-12.0); Monocyte# 0.91 X10^3/uL; Monocyte% 7.6 % (0-10); NRBC Flagged by Analyzer 0 % (0-5); Neutrophil # 9.96 X10^3/uL (2.7-7.7); Neutrophil % 83.7 % (47-70); Platelet Count 187 K/mm3 (150-450); RBC Distribution Width CV 13.2 % (11.6-14.6); RBC Distribution Width SD 40.6 fl (35.1-43.9); Red Blood Count 5.04 M/mm3 (4.6-6.2); White Blood Count 11.9 K/mm3 (4.4-11.0)
== END | disposition home or self-care (01) ==
LOC: MTLAB 10:47
PROVIDERS: PCP Family Medicine; Referring Provider Family Medicine; Visit Provider Family Medicine
DX: L03.116 Cellulitis of left lower limb (principal)
CPT/HCPCS: 36415; 85025

== ENCOUNTER → 2024-07-11 | Outpatient (CLI) | payer OTHER, SELFPAY | END | disposition home or self-care (01) | LOC: LABSPEC 11:22 | PROVIDERS: PCP Family Medicine; Referring Provider Family Medicine; Visit Provider Family Medicine | DX: R19.7 Diarrhea, unspecified (principal) | CPT/HCPCS: 87493 ==

== ENCOUNTER 2024-09-02 06:47 | Day surgery (SDC) | payer OTHER, SELFPAY ==
[2024-09-02] VITALS (7 sets, daily range): BP systolic 112–145; BP diastolic 69–84; PULSE 61–73; RESP 16; TEMP 36.4–36.8; O2SAT 95–99; BMI 42.1
--- NOTE | 2024-09-02 07:36 | PRE.ANES_ITS ---
ASA Classification* ASA Classification ASA Classification: 3 Assessment & Plan Anesthesia* Anesthesia Assessment Anesthesia Assessment: Discussed sedation and/or anesthesia options, risks, benefits, and alternatives with patient/parents/legal guardian/POA. Questions invited. The patient/parents/legal guardian/POA seems to understand and agrees to proceed with anesthesia plan. Reviewed the physical assessment, medical history, allergy history and patient home medications list prior to surgery/procedure/anesthetic and documented any changes. Performed airway and anesthesia risk assessments. Anesthesia Type Anesthesia Type: MAC History Source History Obtained from:: Patient and Chart Anesthesia Focused Assessment* Temperature: 97.8 F Pulse Rate: 63 Blood Pressure: 145/84 Respiratory Rate: 16 Pulse Ox: 99 Oxygen Delivery Method: Room Air Airway Assessment Mouth opens: >3 cm Mallampati Score: IV Teeth Condition: Intact Neck Range of motion (ROM): Limited ROM Focused Labs Anesthesia Preop lab: CBC WBC 11.9 K/mm3 (4.4-11.0) H 07/03/24 10:56 RBC 5.04 M/mm3 (4.6-6.2) 07/03/24 10:56 Hgb 13.9 g/dL (13.0-16.5) 07/03/24 10:56 Hct 42.1 % (40-54) 07/03/24 10:56 Plt Count 187 K/mm3 (150-450) 07/03/24 10:56 CHEMISTRY Potassium 3.8 mmol/L (3.5-5.1) 06/06/24 07:35 Sodium 135 mmol/L (136-145) L 06/06/24 07:35 BUN 12 mg/dL (7-18) 06/06/24 07:35 Creatinine 0.81 mg/dL (0.70-1.30) 06/06/24 07:35 Glucose 94 mg/dL (74-106) 06/06/24 07:35 TSH 0.42 uIU/mL (0.358-3.74) 02/23/15 16:10 COAG PT 14.9 SECONDS (11.7-14.9) 06/02/24 18:03 Pre-Assessment Diagnosis/Proposed Procedure Planned Operative Procedure(s): COLONOSCOPY Anesthesia History Anesthesia History - private watchman: Anesthesia History - private watchman Hx Hospitalization No: [facility], WOUND ON LEG 08/29/24 11:17 FROM CUT Any Problems With Anesthesia No 08/29/24 11:17 Cholinesterase deficiency No 08/29/24 11:17 You/Your Family Experience No 08/29/24 11:17 fever (hyperthermia) with Relationship Recent Exposure to Contagious No 09/02/24 07:11 Disease Does patient have nerve No 08/29/24 11:17 stimulator Patient instructed to have device shut off --Does patient have Pacemaker No 09/02/24 07:11 or ICD? When Was Last Pacemaker Check QUESTION #4 FULL TEXT: You/Your Family Experience fever (hyperthermia) with Anesthesia Last Oral Intake Last Oral intake: Last Oral Intake NPO since 05:00 09/02/24 07:11 Meds taken in AM with sips of water? Meds patient instructed to take am of surgery Any additional information?: Yes NPO since: 04:00 (Patient finished prep at 4 AM.) PONV PONV - private watchman: PONV - private watchman Female No 08/29/24 11:17 HX of Motion Sickness No 08/29/24 11:17 HX of N/V After Surgery No 08/29/24 11:17 Non-Smoker Yes 08/29/24 11:17 Duration of Surgery greater No 08/29/24 11:17 than 60 minutes Number of Risk Factors 1 08/29/24 11:17 PONV Score Low Risk 08/29/24 11:17 Height & Weight Height & Weight: Anesthesia: Height & Weight Height 5 ft 10 in 09/02/24 07:11 Weight: 133.3 kg 09/02/24 07:11 Body Mass Index (BMI) 42.1 09/02/24 07:11 Respiratory Assessment Respiratory Assessment - private watchman: Respiratory Tract Infection Hx - private watchman Hx Respiratory Tract Infection No 08/29/24 11:17 STOP Sleep Apnea STOP Sleep Apnea - private watchman: STOP Sleep Apnea - private watchman Hx Hypertension Yes: CONTROLLED WITH MEDS 08/29/24 11:17 Hx Sleep Apnea No 08/29/24 11:17 CPAP BIPAP Do you snore loudly (louder No 08/29/24 11:17 than talking or can be heard Do you often feel tired/ No 08/29/24 11:17 fatigued/ sleepy during daytime? Has anyone observed you stop No 08/29/24 11:17 breathing during sleep? STOP Results Negative 08/29/24 11:17 QUESTION #5 FULL TEXT : Do you snore loudly (louder than talking or can be heard through closed doors)? Tobacco Use History Tobacco Use History - private watchman: Tobacco Use History - private watchman Tobacco Use Smoking Status Never smoker 08/29/24 11:17 Hx Tobacco Use No 08/29/24 11:17 Years Smoking Packs Smoked per Day Smoking Cessation Date was within the last 15 years Hx Smoking Cessation Date Hx Smoking Cessation Counseling Hematologic Medial History Hematologic Hx - private watchman: Hematologic Medical Hx - documentation manager Hx of Blood Transfusion No 08/29/24 11:17 Hx of Transfusion in last 3 No 08/29/24 11:17 Months Date of Last Transfusion (if within last 3 months) Ever experience any problems No 08/29/24 11:17 with transfusion(s)? Specify any problems Hx of Preganancy in last 3 N/A 08/29/24 11:17 Months Nurse Filling Out Transfusion [email or web address] 08/29/24 11:17 & Questions: Date: 08/29/24 08/29/24 11:17 Time: 11:17 08/29/24 11:17 Patient unable to answer at this time (ie. confused, unrespo /Reproduction History /Reproductive History - private watchman: /Reproductive Hx- private watchman Hx Now Gestational Age (in weeks): EDC: Hx Hx Para Hx Section SAB PFSH Medical History (Updated 08/29/24 @ 11:24 by Tru Martinez) Wears glasses Non-smoker History of edema Lymphedema Cough Fever Internal derangement of right knee COVID-19 Basal cell carcinoma Erectile dysfunction Actinic keratosis Numerous moles Anxiety Hypertension Home Medications ?Medication ?Instructions ?Recorded ?Last Taken ?Type tadalafil 20 mg tablet (Cialis) 20 mg PO QDAY PRN sexual activity 01/24/24 Unkno wn Rx #10 tabs hydrochlorothiazide 12.5 mg tablet 12.5 mg PO DAILY #90 tabs 07/03/24 Unknown Rx lisinopril 5 mg tablet 5 mg PO DAILY 30 days #90 tabs 07/03/24 Unknown Rx Allergy/AdvReac Type Severity Reaction Status Date / Time No Known Allergies Allergy Verified 09/02/24 07:10 Family History Mother Anxiety Grandfather Cancer Father COPD (chronic obstructive pulmonary disease) Surgical History History of vasectomy Social History household members: spouse Smoking Status: Never smoker alcohol intake: never substance use type: does not use what type of physical activity do you participate in: walking frequency: 1-2 times per week Review of Systems (Anesthesia) ROS Narrative System reviewed and no additional complaints, except as documented.
--- NOTE | 2024-09-02 07:45 | COLBX_PTH ---
PATIENT: TRI MARTINEZ LOC: EN U#:[id number] AGE/SX: 59/M ROOM: RE09/02/[address]: Dr. Brandyn Madsen DO : 1965 BED: DIS: 09/02/2024 SPEC #: [id number] RECD: 09/02/24 11:32 STATUS: ANDREY MARVIN #: [id number] ISIDORO: 09/02/24 07:[address]: Brandyn Madsen DEPT: SURGICAL PATHOLOGY RECD BY: Jenni Babcock ENTERED: 09/02/24 13:23 SP TYPE: COLON BX MARY DR: Dr. Quinn Du DO Tissues: Sigmoid colon biopsy Procedures: Surgery Specimen Level IV HEADER OPERATION: Colonoscopy, polypectomy with cautery PRE-OP DIAGNOSIS: Screening TISSUE SUBMITTED: Sigmoid colon biopsy MICROSCOPIC DIAGNOSIS Sigmoid colon, biopsy: Fragments of tubular adenoma. Fragments of fecal material. SJ. 09/03/2024 MICROSCOPIC DESCRIPTION Slides are reviewed. GROSS DESCRIPTION Received in fixative is one container labeled with the patient's name and designated Sigmoid colon biopsy. The specimen consists of multiple irregular fragments of carrington soft tissue mixed with fecal material that in aggregate measure 2.5 x 0.5 x 0.1 cm. The specimen is totally submitted in one cassette. 09/02/2024 TC:1 CPT:01922
--- NOTE | 2024-09-02 07:54 | PCM.HP.STD ---
[facility] - General General Date of Admission: 09/02/24 Date of Service: 09/02/24 Chief Complaint: Screening colonoscopy HPI Narrative TRI MARTINEZ, is a 59 M who presents today for screening colonoscopy. He is not have any abdominal pain. He does not have any cramping. He has not any chest pain or shortness of breath. He does have past medical history of obesity, mild hypertension, mild anxiety and cellulitis of the left leg. [facility] Medical History (Updated 08/29/24 @ 11:24 by Tru Martinez) Wears glasses Non-smoker History of edema Lymphedema Cough Fever Internal derangement of right knee COVID-19 Basal cell carcinoma Erectile dysfunction Actinic keratosis Numerous moles Anxiety Hypertension Home Medications ?Medication ?Instructions ?Recorded ?Last Taken ?Type tadalafil 20 mg tablet (Cialis) 20 mg PO QDAY PRN sexual activity 01/24/24 Unknown Rx #10 tabs hydrochlorothiazide 12.5 mg tablet 12.5 mg PO DAILY #90 tabs 07/03/24 Unknown Rx lisinopril 5 mg tablet 5 mg PO DAILY 30 days #90 tabs 07/03/24 Unknown Rx Allergy/AdvReac Type Severity Reaction Status Date / Time No Known Allergies Allergy Verified 09/02/24 07:10 Family History Mother Anxiety Grandfather Cancer Father COPD (chronic obstructive pulmonary disease) Surgical History History of vasectomy Social History household members: spouse Smoking Status: Never smoker alcohol intake: never substance use type: does not use what type of physical activity do you participate in: walking frequency: 1-2 times per week ROS Review of Systems ROS Unobtainable: other Constitutional Constitutional: Denies fatigue, fever(s), poor appetite, weight gain or weight loss ENT HEENT: Denies mouth lesions Cardiovascular Cardiovascular: Denies abdominal bloating, abdominal edema or abdominal pain Respiratory/Chest Respiratory/Chest: Denies change in mental status, change in phlegm color, chest congestion or chest tightness Gastrointestinal Gastrointestinal: Denies belching, bloating, change in bowel habits, change in stool character, chewing difficulty, coffee ground emesis, constipation, cramping, diarrhea, dyspepsia, dysphagia, early satiety, excessive flatus, fecal incontinence, heartburn, hematemesis, hematochezia, hemorrhoids, loose stools, melena, nausea, odynophagia, rectal bleeding, tenesmus, vomiting or weight changes Genitourinary Genitourinary: Denies abdominal discomfort, burning urination or itching Musculoskeletal Musculoskeletal: Reports as per HPI; Denies muscle weakness or myalgias Integumentary Integumentary: Denies jaundice Neurologic Neurologic: Denies lack of coordination or weakness Psychiatric Psychiatric: Denies confusion, depression, memory loss, mood swings, paranoia or suicidal ideation Endocrine Endocrinology: Denies systems reviewed and no addt'l complaints, except as documented Hematologic/Lymphatic Hematologic/Lymphatic: Denies anemia, easy bleeding, easy bruising or lymphadenopathy Allergic/Immunologic Allergic/Immunologic: Denies systems reviewed and no addt'l complaints, except as documented Vital Signs Vital Signs Vital Signs: 09/02/24 07:11 09/02/24 07:11 09/02/24 07:42 Temperature 97.8 F 97.8 F Temperature Source Temporal Pulse Rate 63 63 Respiratory Rate 16 16 Respiratory Pattern Normal Blood Pressure 145/84 H 145/84 H Blood Pressure Mean 104 Blood Pressure Source Monitor Blood Pressure Position Semi-Fowlers Blood Pressure Location Right Arm Pulse Ox 99 99 Oxygen Delivery Method Room Air Room Air Weight Weight: 293 lb 14.019 oz Body Mass Index (BMI) 42.1 Physical Exam Narrative General: Alert, oriented, no apparent distress HEENT: Atraumatic, normocephalic Eyes: Anicteric, normal conjunctiva, extraocular movements grossly intact Neck: Supple Respiratory: normal respiratory effort Cardiovascular: Regular rate and rhythm GI: Soft, nontender, nondistended Extremities: Bilateral lower extremity edema, erythema left leg greater than right, much improved Musculoskeletal: Moving all extremities Neuro: No overt focal neurological deficits Skin: Erythema improved Psych: Cooperative Assessment & Plan Assessment/Plan (1) Encounter for screening for malignant neoplasm of colon: PLAN: He was explained alternatives, risk, benefits including not withstanding bleeding, infection, sepsis, perforation, need for emergent surgery . He will have an ASA of 3.
--- NOTE | 2024-09-02 08:36 | OP.CCLET_ITS ---
09/02/2024 Quinn Du Re : Colonoscopy procedure for Felipe Snow Dear Dr. Du This procedure was performed on Monday, September 02, 2024. My impressions and recommendations are as follows: Impressions : - One 8 mm polyp in the sigmoid colon, removed with a hot snare. Resected and retrieved. - Diverticulosis in the recto-sigmoid colon and in the sigmoid colon. Recommendations : - Discharge patient to home. - Resume previous diet. - Continue present medications. - Await pathology results. - Repeat colonoscopy in 5 years for surveillance. My findings are described in the full procedure note, which is enclosed. If I can be of further assistance, please feel free to contact me at . Sincerely, Brandyn Madsen, 09/02/2024 8:36:05 AM This report has been signed electronically.
--- NOTE | 2024-09-02 08:36 | OP.COLON_ITS ---
Patient Name: Felipe Snow Procedure Date: 09/02/2024 8:01 AM Date of : 1965 Age: 59 Procedure: Colonoscopy Indications: Screening for colorectal malignant neoplasm Providers: Brandyn Madsen DO Referring MD: Quinn Du Medicines: Monitored Anesthesia Care Patient Profile: This is a 59 year old male. Refer to note in patient chart for documentation of history and physical. Last Colonoscopy: none. The patient's first colonoscopy is today. Complications: No immediate complications. Procedure: Pre-Anesthesia Assessment: - Prior to the procedure, a History and Physical was performed, and patient medications and allergies were reviewed. The patient is competent. The risks and benefits of the procedure and the sedation options and risks were discussed with the patient. All questions were answered and informed consent was obtained. Patient identification and proposed procedure were verified by the physician in the pre-procedure area. Mental Status Examination: alert and oriented. Airway Examination: normal oropharyngeal airway and neck mobility. Respiratory Examination: clear to auscultation. CV Examination: normal. Prophylactic Antibiotics: The patient does not require prophylactic antibiotics. Prior Anticoagulants: The patient has taken no anticoagulant or antiplatelet agents. ASA Grade Assessment: II - A patient with mild systemic disease. After reviewing the risks and benefits, the patient was deemed in satisfactory condition to undergo the procedure. The anesthesia plan was to use monitored anesthesia care (MAC). Immediately prior to administration of medications, the patient was re-assessed for adequacy to receive sedatives. The heart rate, respiratory rate, oxygen saturations, blood pressure, adequacy of pulmonary ventilation, and response to care were monitored throughout the procedure. The physical status of the patient was re-assessed after the procedure. After I obtained informed consent, the scope was passed under direct vision. Throughout the procedure, the patient's blood pressure, pulse, and oxygen saturations were monitored continuously. The Colonoscope was introduced through the anus and advanced to the terminal ileum. The colonoscopy was performed without difficulty. The patient tolerated the procedure well. The quality of the bowel preparation was adequate. The terminal ileum was photographed. Scope In: 8:11:08 AM Scope Withdrawal Time 0 hours 15 minutes 24 seconds Scope Out: 8:29:35 AM Total Procedure Duration Time 0 hours 18 minutes 27 seconds Findings: The perianal and digital rectal examinations were normal. An 8 mm polyp was found in the sigmoid colon. The polyp was sessile. The polyp was removed with a hot snare. Resection and retrieval were complete. Verification of patient identification for the specimen was done. Estimated blood loss was minimal. A few small-mouthed diverticula were found in the recto-sigmoid colon and sigmoid colon. Impression: - One 8 mm polyp in the sigmoid colon, removed with a hot snare. Resected and retrieved. - Diverticulosis in the recto-sigmoid colon and in the sigmoid colon. Recommendation: - Discharge patient to home. - Resume previous diet. - Continue present medications. - Await pathology results. - Repeat colonoscopy in 5 years for surveillance. Procedure Code(s): --- Professional --- 49228, Colonoscopy, flexible; with removal of tumor(s), polyp(s), or other lesion(s) by snare technique CPT copyright 2021 [employer]. All rights reserved. The codes documented in this report are preliminary and upon property worker review may be revised to meet current compliance requirements. Brandyn Madsen DO 09/02/2024 8:36:05 AM This report has been signed electronically. Number of Addenda: 0 Note Initiated On: 09/02/2024 8:01 AM
--- NOTE | 2024-09-02 08:36 | PCM.POST.ANE ---
Anesthesia: Postop Eval I Current Vital Signs Temperature: 97.6 F Pulse Rate: 71 Blood Pressure: 112/69 Respiratory Rate: 16 Pulse Ox: 97 Oxygen Delivery Method: Room Air Assessment Airway patent: Yes Spontaneous unlabored respirations: Yes Mental status: Awake and Calm nausea: No Vomiting: No Anesthesia Complication: No Fluid Hydration Crystalloid volume administer (ml): 30 Total IV fluid infused: 30 Progress Note Anesthesia document: Postop Eval 1 completed: Yes
--- NOTE | 2024-09-02 10:00 | PCM.POSTANE2 ---
Anesthesia Postop Eval I Sum Postop Eval Completion status Anesthesia document: Postop Eval 1 completed: Yes Anesthesia Postop Eval I Summary Anesthesia Postop Eval I Summary: Anesthesia Postop Eval I: Assessment Summary Airway patent Yes 09/02/24 08:37 [email or web address] Spontaneous unlabored Yes 09/02/24 08:37 [email or web address] respirations Mental status Awake,Calm 09/02/24 08:37 [email or web address] nausea No 09/02/24 08:37 [email or web address] Vomiting No 09/02/24 08:37 [email or web address] Anesthesia Postop Eval I: Fluid Summary Crystalloid volume administer 30 09/02/24 08:37 [email or web address] (ml) Colloids volume administered ( ml) Blood Product volume administered (ml) Total IV fluid infused 30 09/02/24 08:37 [email or web address] Anesthesia Postop Eval I: Summary Notes Anesthesia Complication No 09/02/24 08:37 [email or web address] Anesthesia Complication Comment: Post-operative progress note Anesthesia: Postop Eval II Evaluation Mental status: Awake Pain Level: 0 nausea: No Vomiting: No
== END 2024-09-02 09:25 | disposition home or self-care (01) ==
LOC: EN 06:48 → AC 06:50
PROVIDERS: PCP Family Medicine; Referring Provider Family Medicine; Visit Provider Internal Medicine Gastroenterology
PROC: 0DJD8ZZ Inspection of Lower Intestinal Tract, Via Natural or Artificial Opening Endoscopic (ICD-10-PCS; CPT 45378; principal; 2024-09-02 07:40)
DX: Z12.11 Encounter for screening for malignant neoplasm of colon (principal); K57.30 Diverticulosis of large intestine without perforation or abscess without bleeding; K63.5 Polyp of colon; I10 Essential (primary) hypertension; Z79.899 Other long term (current) drug therapy; Z98.52 Vasectomy status
CPT/HCPCS: 45385; 88305; A4216; J2405